=== PATIENT | female | born 1960 | race Caucasian/White ===

== ENCOUNTER → 2018-05-06 14:29 | Outpatient (CLI) | payer OTHER, SELFPAY ==
--- NOTE | 2018-05-06 14:31 | RAD_ITS ---
STUDY: X-RAY - LUMBAR SPINE REASON FOR EXAM: Female, 57 years old. Lumbar fusion. Follow-up. TECHNIQUE: 2 view(s) of the lumbar spine were obtained. COMPARISON: 08/27/2017 FINDINGS: There are stable postoperative changes from posterior fusion of L3-S1 with intact hardware and satisfactory alignment. There are stable degenerative changes with grade 1 anterolisthesis of L3 with respect to L4 and L4 with respect to L5. There is stable mild levoscoliosis. There is no acute fracture or dislocation. RAD/Lumbar Spine 2 or 3 Views IMPRESSION: Stable postoperative and degenerative changes in the lumbar spine. No fracture or dislocation in the lumbar spine. Electronically Signed: Jeremy King, at 19:48 EDT Tel , Service support ,
== END ==
PROVIDERS: Family Provider Nurse Practitioner Primary Care; PCP Nurse Practitioner Primary Care; Visit Provider Orthopaedic Surgery
DX: M54.5 Low back pain (principal)
CPT/HCPCS: 72100

== ENCOUNTER 2018-08-13 12:59 | Day surgery (SDC) | payer OTHER, SELFPAY ==
--- NOTE | 2018-08-08 16:17 | EKG12_ITS ---
Test Reason : PRE-OP Blood Pressure : / mmHG Vent. Rate : 067 BPM Atrial Rate : 067 BPM P-R Int : 140 ms QRS Dur : 080 ms QT Int : 378 ms P-R-T Axes : 061 042 027 degrees QTc Int : 399 ms Normal sinus rhythm Normal ECG Confirmed by OWEN WHITE ([id number]), editor & co founder GIO BOLANOS ([id number]) on 08/12/2018 9:09:31 AM Referred By: Johanny Valero Confirmed By:OWEN WHITE
[2018-08-08 16:31] LABS: Hematocrit 41.4 % (37-47); Hemoglobin 13.5 g/dl (12.0-15.0); Mean Corp Hgb Conc 32.6 g/gl (32-36); Mean Corpuscular Hgb 30.3 pg (27.0-32.0); Mean Platelet Vol. 9.6 fl (6.2-12.0); Platelet Count 297 K/mm3 (150-450); RBC Distribution Width SD 40.5 fl (35.1-43.9); Red Blood Count 4.45 M/mm3 (4.2-5.4); White Blood Count 7.3 K/mm3 (4.4-11.0)
[2018-08-08 16:38] LABS: Scan Indicated on CBC? Y/N NO
[2018-08-08 16:45] LABS: International Normalized Ratio 0.9; Prothrombin Time (Protime)PT. 12.1 SECONDS (11.7-14.9)
[2018-08-08 16:46] LABS: Partial Thromboplast Time 24.6 Seconds (24.1-36.2)
[2018-08-08 17:24] LABS: Thyroid Stim Hormone (TSH) 0.93 uIU/mL (0.358-3.74)
[2018-08-11 09:22] LABS: Creatinine, Serum 0.64 mg/dL (0.55-1.02); EST Glomerular Filtration Rate 101 mL/min (>60); Est Glom Filt Rate - Afr Amer 122 mL/min (>60)
[2018-08-13] VITALS (11 sets, daily range): BP systolic 99–142; BP diastolic 51–78; PULSE 49–92; RESP 16–18; TEMP 36.3–37.2; O2SAT 95–100; BMI 27.0
--- NOTE | 2018-08-13 | HYST_PTH ---
PATIENT: SANYA ALEJANDRO LOC: [facility] [place] U#:[id number] AGE/SX: 57/F ROOM: RE08/13/[address]: Dr. Johanny Valero MD : [id number] BED: DIS: 08/14/2018 SPEC #: [id number] RECD: 08/14/18 10:50 STATUS: COLTON PAVITHRA #: [id number] EUNICE: 08/13/18 00:[address]: Johanny Valero DEPT: SURGICAL PATHOLOGY RECD BY: Jhon Nation ENTERED: 08/14/18 10:50 SP TYPE: HYSTERECT OTHR DR: Ely Moya, MORTGAGE SERVICING SPECIALIST-C Tissues: Uterus, NOS Procedures: Surgery Specimen Level II Surgery Specimen Level V HEADER OPERATION: Vaginal hysterectomy, anterior repair PRE-OP DIAGNOSIS: Midline cystocele, uterovaginal prolapse TISSUE SUBMITTED: Uterus, vaginal mucosa MICROSCOPIC DIAGNOSIS Uterus, hysterectomy: Cervix - nabothian cysts, squamous metaplasia and mild chronic inflammation. Endometrium - inactive endometrium with cystic change. Myometrium - adenomyosis. Vaginal mucosa, anterior and posterior repair: Minimal chronic inflammation. No evidence of dysplasia. AM:deedee 08/15/18 MICROSCOPIC DESCRIPTION Slides are reviewed. GROSS DESCRIPTION Received in fixative is one container labeled with the patient's name and designated uterus. The specimen consists of a uterus with attached cervix without fallopian tubes or ovaries measuring 9.2 x 4 x 3 cm and weighing 53 gm. The ectocervix is unremarkable and the cervical os is oval in contour. The endocervical canal measures 4 cm in length and is grossly unremarkable. The triangular endometrial cavity measures 3 x 2.5 cm. The pink-atkins, velvety endometrium measures up to 0.2 cm in thickness. The myometrium measures 1.6 cm in average thickness and is free of mass lesions. Also present free in the container are two fragments of glistening mucosa with attached hemorrhagic submucosal tissue. These fragments in aggregate measure 4 x 3.5 x 1.5 cm. No mass lesions are identified. Plastic Press Operator sections are submitted in six cassettes as follows: 1 - anterior cervix, 2 - posterior cervix, 3 - anterior uterine wall, 4 & 5 - posterior uterine wall, 6 - vaginal mucosa. / AM:deedee 08/14/18 TC:5 CPT: 61865, 35656
--- NOTE | 2018-08-13 16:46 | PCM.IMDPSTOP ---
Immediate Post-Op Note Date of Procedure: 08/13/18 Primary Surgeon/Physician: Johanny Valero retail client solutions analyst: Joann grijalva retail client solutions analyst: Petty Zuleta retail client solutions analyst: Maria Guadalupe [place] Pre-Operative Diagnosis: Incomplete uterovaginal prolapse. Midline apical cystocele Post-Operative Diagnosis: Same Surgery/Procedure Performed:: TVH, Anterior repair Description of Surgical Findings:: Op note to follow Estimated Blood Loss: 100 Specimen's removed: uterus, cervix, Vaginal mucosa Drains: padilla, clear yellow urine 270 cc for case Type of Anesthesia:: General - Jostin Rushing, HOT FRAME TENDER - Admit VTE Documentation VTE Present on Admission: No VTE Mechan Device Prophylaxis: SCD's VTE Pharm Prophylaxis ordered?: Yes
--- NOTE | 2018-08-13 16:49 | OP.PN_ITS ---
Immediate Post-Op Note Date of Procedure: 08/13/18 Primary Surgeon/Physician: Johanny Valero water quality technician: Joann grijalva water quality technician: Petty Zuleta water quality technician: Maria Guadalupe [place] Pre-Operative Diagnosis: Incomplete uterovaginal prolapse. Midline apical cystocele Post-Operative Diagnosis: Same Surgery/Procedure Performed:: TVH, Anterior repair Description of Surgical Findings:: Op note to follow Estimated Blood Loss: 100 Specimen's removed: uterus, cervix, Vaginal mucosa Drains: padilla, clear yellow urine 270 cc for case Type of Anesthesia:: General - Jostin Rushing, TELEPHONE TRIAGE NURSE - Admit VTE Documentation VTE Present on Admission: No VTE Mechan Device Prophylaxis: SCD's VTE Pharm Prophylaxis ordered?: Yes
--- NOTE | 2018-08-13 17:07 | OP.PCM_ITS ---
Operative Report Date of Procedure: 08/13/18 PROCEDURE: Vaginal hysterectomy. Anterior repair Preoperative diagnosis: Symptomatic , incomplete uterovaginal prolapse Grade 2uterine prolapse Mild apical cystocele Postop diagnosis: Symptomatic , incomplete uterovaginal prolapse Grade 2uterine prolapse Mild apical cystocele Anesthesia: General Jostin Rushing CRNA Surgeon: Johanny Valero MD Non Licensed Nuclear Plant Operator: TRINITY Rodgers RN EBL 100 cc Complications: none Drains: Gonzales draining clear yellow urine , 270cc+ for the case Fluids: replacement LR Findings: On exam under anesthesia, the cervix has mild prolapse and is parous appearing. There is an apical cystocele noted. No appreciable rectocele. PATH: Uterus, and cervix. Strips of vaginal mucosa. Narrative account: After the risks, benefits and alternatives of the procedure were reviewed with the patient , informed consent was obtained. The patient was taken to the Operative room with an IV running . She was positioned in the dorsal supine position on the operating table and given general anesthesia. Once asleep she was positioned to the dorsal lithotomy position and prepped and draped in the usual sterile fashion. A Gonzales catheter was inserted to drain the bladder and left open to drain in the drape. The weighted speculum was placed into the vagina and a single tooth tenaculum was placed at the cervix. The cervical mucosal was then incised circumferentially using Bovie cautery and a knife. The posterior cul de sac was entered by sharp dissection with Rodriguez scissors and a long weighted Iván Auvard speculum was placed into the posterior cul se sac. Dissection then was initiated at the anterior cervix to enter the anterior cul se sac. A narrow Severn was inserted to retract the bladder out of harms way for the remainder of the case. The uterosacral ligaments were clamped bilaterally with curved Nayeli clamps and the pedicles divided and suture ligated and tagged for later identification. Next the cardinal ligament was clamped bilaterally and divided and suture ligated. Adequate hemostasis was noted. The uterine arteries were clamped bilaterally , divided and suture ligated. Dissection then continued along each side of the uterus. Each pedicle was secured with a Nayeli clamp, divided and suture ligated until ultimately the uterine fundus was reached. The superior pedicles on each side were secured with a curved Nayeli clamp and the uterus and attached fallopian tubes were surgically amputated and set aside. The superior pedicles were then suture ligated, then free tied and tagged for identification. The superior pedicles were dry. There was bleeding noted along the posterior vaginal cuff and along the anterior vaginal cuff . The peritoneum was then closed with a running purse string suture of 1 Vicryl, incorporating the superior pedicles and uterosacral ligament tags. the posterior portion of the vaginal cuff was closed in a vertical fashion with interrupted and figure of eight stitches of 1 Vicryl to the level of the uterosacral ligament tags. Allis clamps were used to grasp the anterior vaginal mucosa and the vaginal mucosa was dissected from from the underlying pubovesical cervical fascia from the vaginal cuff to a point approximately 1 cm away from the urethra. Su plication stitches of 1Vicryl were placed, reducing the small cystocele. The anterior vaginal mucosa was trimmed and the anterior vaginal incision was then repaired with interrupted stitches of 2-0 chromic. The remainder of the vaginal cuff was then closed with interrupted and fig of eight stitches of 1-0 Vicryl . Excellent hemostasis was noted. A vaginal packing was then inserted: 1 plain gauze Excellent hemostasis was noted. The Gonzales was attached to the Gonzales bag and clear yellow urine returned. A peripad was placed. The patient was returned to dorsal supine position and awakened from general anesthesia. She was then transferred to the recovery room bed in stable condition after tolerating the procedure well. Sponge, lap, needle and instrument counts correct times two. Medications given preop and intraoperatively included: Cefotetan 2 gm IV was given salesperson women's hats to the operating room. For a complete listing of medications given preop and intraoperatively, please see the anesthesia record.
--- NOTE | 2018-08-13 17:12 | SUR.PHASEI ---
medicated by anesthesia for hr 46. see anesthesia notes.
[2018-08-13] MEDS: Ketorolac 30 MG/ML Syringe IV ×2 (17:22→22:47)
[2018-08-13] MEDS: Lactated Ringers 1,000 ML 125 ML IV ×2 (17:23→19:20)
[2018-08-13] MEDS: HYDROmorphone 1 MG/ML Syringe IV (19:19)
[2018-08-13] MEDS: Docusate Sodium 100 MG Capsule PO (22:47)
--- NOTE | 2018-08-14 00:58 | PCM.DC.VHY ---
Discharge Diet: No Restrictions Discharge Activity: May not drive while taking narcotic pain medications., May Shower, May Take a Tub Bath Return to work on:: 09/29/18 May resume sexual activity in: 4-6 weeks Lifting Restrictions: 20# or less for 4-6 wks to allow healing. Call your doctor if you observe: Fever of 101 or Higher, Inability to have a bowel movement, Using more than one pad per hour, Uncontrolled pain Additional Instructions: You may resume bonbon cream warmer activity as tolerated. Nothing in vagina and avoid lifting more than 20# for 4-6 wk to allow healing. OK to go up and down stairs as comfortable. You may take Tylenol (500 mg tabs) 1-2 every 6 hrs as needed for milder pain. Add Naproxen for mild to moderate pain. In addition, take Oxycodone for more severe pain. Allergies/Adverse Reactions: Allergies barley Allergy (Verified 08/06/18 14:03) Other corn Allergy (Verified 08/06/18 14:03) Other egg Allergy (Verified 08/06/18 14:03) Other gluten Allergy (Verified 05/06/18 15:57) unknown nut - unspecified Allergy (Verified 05/06/18 15:57) unknown shellfish derived Allergy (Verified 08/06/18 14:03) Other turkey Allergy (Verified 08/06/18 14:03) Other wheat Allergy (Verified 08/06/18 14:03) Other Yeast Allergy (Verified 08/06/18 14:03) Other DAIRY Allergy (Uncoded 08/06/18 14:03) Other EGG PLANT Allergy (Uncoded 08/06/18 14:03) Other EGG WHITE Allergy (Uncoded 08/06/18 14:03) Other MALT Allergy (Uncoded 08/06/18 14:03) Other Medications to take at Discharge biotin 2,500 mcg capsule 5,000 mcg PO BID 05/06/18 calcium carbonate 600 mg calcium (1,500 mg) tablet 600 mg PO BID tab 05/06/18 cholecalciferol (vitamin D3) 50,000 unit capsule 50,000 unit PO QWEEK 05/06/18 conj estrogen-medroxyprogesterone 0.625 mg-2.5 mg tablet 1 tab PO DAILY 05/06/18 levothyroxine 150 mcg tablet 175 mcg PO QDAY 05/06/18 montelukast 10 mg tablet 10 mg PO PRN PRN 05/06/18 omega 7-qsx-qim-fish oil 1,000 mg (120 mg-180 mg) capsule 1 cap PO BID 05/06/18 triamcinolone acetonide 55 mcg nasal spray aerosol 1 spray INTRANASAL QDAY 05/06/18 Albuterol IH (ProAir) [Proair Hfa (SP)Vent Pts] 2 puff INHALATION Q6H PRN PRN 08/06/18 Fexofenadine HCl [Mickie Allergy] 180 mg PO DAILY 08/06/18 Lisinopril 20 mg PO DAILY 08/06/18 Pseudoephedrine HCl [Sudafed 12 Hour] 120 mg PO DAILY 08/06/18 Acetaminophen [Tylenol] 1,000 mg PO Q8H PRN PRN tablet 08/14/18 Albuterol Aerosols [Ventolin Aerosols] 2.5 mg INHALATION Q6H PRN PRN vial.neb. 08/14/18 Docusate Sodium [Colace] 100 mg PO BID PRN #30 capsule 08/14/18 Ibuprofen 600 mg PO Q8H PRN PRN #30 tablet 08/14/18 Oxycodone [Oxyir] 5 mg PO Q6H PRN PRN 7 Days #20 tab 08/14/18 Polyethylene Glycol 3350 [Miralax] 17 gm PO DAILY PRN #1 bottle 08/14/18 The following prescriptions were given: Oxycodone [Oxyir] 5 mg PO Q6H PRN PRN 7 Days #20 tab PRN Reason: Mod-Severe Pain (4-10/10) Ibuprofen 600 mg PO Q8H PRN PRN #30 tablet PRN Reason: Mild-Mod Pain (1-5/10) Polyethylene Glycol 3350 [Miralax] 17 gm PO DAILY PRN #1 bottle PRN Reason: Constipation Docusate Sodium [Colace] 100 mg PO BID PRN #30 capsule PRN Reason: Constipation Primary Care Physician: Ely Moya NP-C [Primary Care Provider] - Test Results: Test results from this visit will be discussed in further detail at your follow-up appointment, if applicable. Please Follow Up With: Johanny Valero MD - [phone] When: in two weeks for postoperative appointment Proposed Discharge Date: 08/14/18
--- NOTE | 2018-08-14 01:09 | DCINST_ITS ---
Discharge Diet: No Restrictions Discharge Activity: May not drive while taking narcotic pain medications., May Shower, May Take a Tub Bath Return to work on:: 09/29/18 May resume sexual activity in: 4-6 weeks Lifting Restrictions: 20# or less for 4-6 wks to allow healing. Call your doctor if you observe: Fever of 101 or Higher, Inability to have a bowel movement, Using more than one pad per hour, Uncontrolled pain Additional Instructions: You may resume mineral surveyor activity as tolerated. Nothing in vagina and avoid lifting more than 20# for 4-6 wk to allow healing. OK to go up and down stairs as comfortable. You may take Tylenol (500 mg tabs) 1-2 every 6 hrs as needed for milder pain. Add Naproxen for mild to moderate pain. In addition, take Oxycodone for more severe pain. Allergies/Adverse Reactions: Allergies barley Allergy (Verified 08/06/18 14:03) Other corn Allergy (Verified 08/06/18 14:03) Other egg Allergy (Verified 08/06/18 14:03) Other gluten Allergy (Verified 05/06/18 15:57) unknown nut - unspecified Allergy (Verified 05/06/18 15:57) unknown shellfish derived Allergy (Verified 08/06/18 14:03) Other turkey Allergy (Verified 08/06/18 14:03) Other wheat Allergy (Verified 08/06/18 14:03) Other Yeast Allergy (Verified 08/06/18 14:03) Other DAIRY Allergy (Uncoded 08/06/18 14:03) Other EGG PLANT Allergy (Uncoded 08/06/18 14:03) Other EGG WHITE Allergy (Uncoded 08/06/18 14:03) Other MALT Allergy (Uncoded 08/06/18 14:03) Other Medications to take at Discharge biotin 2,500 mcg capsule 5,000 mcg PO BID 05/06/18 calcium carbonate 600 mg calcium (1,500 mg) tablet 600 mg PO BID tab 05/06/18 cholecalciferol (vitamin D3) 50,000 unit capsule 50,000 unit PO QWEEK 05/06/18 conj estrogen-medroxyprogesterone 0.625 mg-2.5 mg tablet 1 tab PO DAILY 05/06/18 levothyroxine 150 mcg tablet 175 mcg PO QDAY 05/06/18 montelukast 10 mg tablet 10 mg PO PRN PRN 05/06/18 omega 9-kvf-sal-fish oil 1,000 mg (120 mg-180 mg) capsule 1 cap PO BID 05/06/18 triamcinolone acetonide 55 mcg nasal spray aerosol 1 spray INTRANASAL QDAY 05/06/18 Albuterol IH (ProAir) [Proair Hfa (SP)Vent Pts] 2 puff INHALATION Q6H PRN PRN 08/06/18 Fexofenadine HCl [Mickie Allergy] 180 mg PO DAILY 08/06/18 Lisinopril 20 mg PO DAILY 08/06/18 Pseudoephedrine HCl [Sudafed 12 Hour] 120 mg PO DAILY 08/06/18 Acetaminophen [Tylenol] 1,000 mg PO Q8H PRN PRN tablet 08/14/18 Albuterol Aerosols [Ventolin Aerosols] 2.5 mg INHALATION Q6H PRN PRN vial.neb. 08/14/18 Docusate Sodium [Colace] 100 mg PO BID PRN #30 capsule 08/14/18 Ibuprofen 600 mg PO Q8H PRN PRN #30 tablet 08/14/18 Oxycodone [Oxyir] 5 mg PO Q6H PRN PRN 7 Days #20 tab 08/14/18 Polyethylene Glycol 3350 [Miralax] 17 gm PO DAILY PRN #1 bottle 08/14/18 The following prescriptions were given: Oxycodone [Oxyir] 5 mg PO Q6H PRN PRN 7 Days #20 tab PRN Reason: Mod-Severe Pain (4-10/10) Ibuprofen 600 mg PO Q8H PRN PRN #30 tablet PRN Reason: Mild-Mod Pain (1-5/10) Polyethylene Glycol 3350 [Miralax] 17 gm PO DAILY PRN #1 bottle PRN Reason: Constipation Docusate Sodium [Colace] 100 mg PO BID PRN #30 capsule PRN Reason: Constipation Primary Care Physician: Ely Moya NP-C [Primary Care Provider] - Test Results: Test results from this visit will be discussed in further detail at your follow- up appointment, if applicable. Please Follow Up With: Johanny Valero MD - [phone] When: in two weeks for postoperative appointment Proposed Discharge Date: 08/14/18
[2018-08-14] MEDS: Lactated Ringers 1,000 ML 125 ML IV (03:33)
[2018-08-14] MEDS: oxyCODONE 5 MG Tablet PO (03:34)
[2018-08-14 03:38] VITALS: BP 121/59; PULSE 82; RESP 18; TEMP 36.7; O2SAT 95
[2018-08-14] MEDS: Ketorolac 30 MG/ML Syringe IV (05:04)
[2018-08-14] MEDS: Levothyroxine 175 MCG Tablet PO (05:10)
[2018-08-14] MEDS: Lisinopril 20 MG Tablet PO (05:58)
[2018-08-14] MEDS: 0.9% NaCl Peripheral Flush Adult/Peds IV (05:58)
[2018-08-14] MEDS: PSEUDOEPHEDRINE HCL 120 MG PO (06:03)
[2018-08-14 06:33] LABS: Hematocrit 32.5 % (37-47); Hemoglobin 10.9 g/dl (12.0-15.0); Mean Corp Hgb Conc 33.5 g/gl (32-36); Mean Corpuscular Hgb 31.3 pg (27.0-32.0); Mean Corpuscular Volume 93.4 fL (81-99); Mean Platelet Vol. 9.9 fl (6.2-12.0); Platelet Count 224 K/mm3 (150-450); RBC Distribution Width CV 11.4 % (11.6-14.6); RBC Distribution Width SD 38.2 fl (35.1-43.9); Red Blood Count 3.48 M/mm3 (4.2-5.4); White Blood Count 12.7 K/mm3 (4.4-11.0)
[2018-08-14 06:37] LABS: Scan Indicated on CBC? Y/N NO
[2018-08-14 06:44] LABS: Creatinine, Serum 0.66 mg/dL (0.55-1.02); EST Glomerular Filtration Rate 98 mL/min (>60); Est Glom Filt Rate - Afr Amer 119 mL/min (>60); Estimated Creatinine Clearance 73.48 ml/min
[2018-08-14 07:00] VITALS: O2SAT 94
--- NOTE | 2018-08-14 08:16 | PCM.PROGNOTE ---
Subjective: POD#1 TVH anterior repair Symptomatic incomplete uterovaginal prolapse Doing well. Asking about the surgery and what meds given for anesthesia. No propofol 2/2 egg allergy. Padilla in and driaining very clear appearing uerinr. Vaginal packing still in place. Tolerating diet, no N/V. States poor sleep last night after anesthesia. No other concerns voiced. - Physical Exam General: Alert, Oriented x3, Cooperative, No apparent distress HEENT: Atraumatic Neck: Supple Neurological: Cranial nerves II-XII grossly intact Psych/Mental Status: Normal Affect Comment: vaginal packing removed. minimal old blood noted. No active bleeding not Vital Signs Temp Pulse Resp BP Pulse Ox 98.1 F 82 18 121/59 H 94 08/14/18 03:38 08/14/18 03:38 08/14/18 03:38 08/14/18 03:38 08/14/18 07:00 Oxygen Delivery Method Room Air Weight: 67.1 kg Body Mass Index (BMI) 27.0 Intake and Output for Last 24 Hours 08/12/18 08/13/18 08/14/18 23:59 23:59 23:59 Intake Total 2700 / 2700 3477 / 3477 Output Total 300 / 300 1125 / 1125 Balance 2400 / 2400 2352 / 2352 Laboratory Tests Past 24 Hrs 08/14/18 08/14/18 06:10 06:10 WBC 12.7 H RBC 3.48 L Hgb 10.9 L Hct 32.5 L MCV 93.4 MCH 31.3 MCHC 33.5 RDW 11.4 L RDW Differential 38.2 Plt Count 224 MPV 9.9 Creatinine 0.66 Estim Creat Clear Calc 73.48 Est GFR (MDRD) Af Amer 119 Est GFR (MDRD) Non-Af 98 Medical Necessity - Tobacco Use Smoking Status: Never smoker Assessment/Plan POD#1 TVH anterior repair. Stable postop. Inc diet and activity as tolerated. Begin po meds. D/C padilla for voiding trial. May dischg home if criteria met later today.
--- NOTE | 2018-08-14 08:20 | PCM.DC.SUM ---
Discharge Date and Diagnosis Date of Admission: 08/13/18 Date of Discharge: 08/14/18 Hospital Course and Treatment Operations: hysterectomy - anterior repair Summary of Care Provided: The patient is a 57 year old F with incomplete, symptomatic uterovaginal prolapse. Presents for TVH, anterior repair. procedure performed on 08/13/18 Uncomplicated. preop Hgb 13.5 postop Hgb 10.9 g/dl. Excellent urine output. Tolerating po without N/V. AVSS Leukocytosis (reactive) noted postop. Voiding trial in progress, Dischg home planned later today if criteria met. - Physical Exam Vital Signs Temp Pulse Resp BP Pulse Ox 98.1 F 82 18 121/59 H 94 08/14/18 03:38 08/14/18 03:38 08/14/18 03:38 08/14/18 03:38 08/14/18 07:00 Oxygen Delivery Method Room Air Weight: 67.1 kg Body Mass Index (BMI) 27.0 Intake and Output for Last 24 Hours 08/12/18 08/13/18 08/14/18 23:59 23:59 23:59 Intake Total 2700 / 2700 3477 / 3477 Output Total 300 / 300 1125 / 1125 Balance 2400 / 2400 2352 / 2352 Laboratory Tests Past 24 Hrs 08/14/18 08/14/18 06:10 06:10 WBC 12.7 H RBC 3.48 L Hgb 10.9 L Hct 32.5 L MCV 93.4 MCH 31.3 MCHC 33.5 RDW 11.4 L RDW Differential 38.2 Plt Count 224 MPV 9.9 Creatinine 0.66 Estim Creat Clear Calc 73.48 Est GFR (MDRD) Af Amer 119 Est GFR (MDRD) Non-Af 98 Discharge Diet: No Restrictions Discharge Activity: May not drive while taking narcotic pain medications., May Shower, May Take a Tub Bath Return to work on:: 09/29/18 May resume sexual activity in: 4-6 weeks Call your doctor if you observe: Fever of 101 or Higher, Inability to have a bowel movement, Using more than one pad per hour, Uncontrolled pain Home Medications: Medications to take at Discharge biotin 2,500 mcg capsule 5,000 mcg PO BID 05/06/18 calcium carbonate 600 mg calcium (1,500 mg) tablet 600 mg PO BID tab 05/06/18 cholecalciferol (vitamin D3) 50,000 unit capsule 50,000 unit PO QWEEK 05/06/18 conj estrogen-medroxyprogesterone 0.625 mg-2.5 mg tablet 1 tab PO DAILY 05/06/18 levothyroxine 150 mcg tablet 175 mcg PO QDAY 05/06/18 montelukast 10 mg tablet 10 mg PO PRN PRN 05/06/18 omega 0-uno-vqr-fish oil 1,000 mg (120 mg-180 mg) capsule 1 cap PO BID 05/06/18 triamcinolone acetonide 55 mcg nasal spray aerosol 1 spray INTRANASAL QDAY 05/06/18 Albuterol IH (ProAir) [Proair Hfa (SP)Vent Pts] 2 puff INHALATION Q6H PRN PRN 08/06/18 Fexofenadine HCl [Mickie Allergy] 180 mg PO DAILY 08/06/18 Lisinopril 20 mg PO DAILY 08/06/18 Pseudoephedrine HCl [Sudafed 12 Hour] 120 mg PO DAILY 08/06/18 Acetaminophen [Tylenol] 1,000 mg PO Q8H PRN PRN tablet 08/14/18 Albuterol Aerosols [Ventolin Aerosols] 2.5 mg INHALATION Q6H PRN PRN vial.neb. 08/14/18 Docusate Sodium [Colace] 100 mg PO BID PRN #30 capsule 08/14/18 Ibuprofen 600 mg PO Q8H PRN PRN #30 tablet 08/14/18 Oxycodone [Oxyir] 5 mg PO Q6H PRN PRN 7 Days #20 tab 08/14/18 Polyethylene Glycol 3350 [Miralax] 17 gm PO DAILY PRN #1 bottle 08/14/18 Following Prescrptions Were Given to Patient: Oxycodone [Oxyir] 5 mg PO Q6H PRN PRN 7 Days #20 tab PRN Reason: Mod-Severe Pain (4-10/10) Ibuprofen 600 mg PO Q8H PRN PRN #30 tablet PRN Reason: Mild-Mod Pain (1-5/10) Polyethylene Glycol 3350 [Miralax] 17 gm PO DAILY PRN #1 bottle PRN Reason: Constipation Docusate Sodium [Colace] 100 mg PO BID PRN #30 capsule PRN Reason: Constipation Primary Care Physician: Ely Moya, DAM TENDER-C [Primary Care Provider] - Please Follow Up With: Johanny Valero MD - [phone] When: in two weeks for postoperative appointment Additional Instructions: 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 Nothing in vagina and avoid lifting more than 20# for 4-6 wk to allow healing. OK to go up and down stairs as comfortable. You may take Tylenol (500 mg tabs) 1-2 every 6 hrs as needed for milder pain. Add Naproxen for mild to moderate pain. In addition, take Oxycodone for more severe pain. Medical Necessity - Tobacco Use Smoking Status: Never smoker Meaningful Use Info Meaningful Use Diagnoses (Choose all that apply): None applicable
--- NOTE | 2018-08-14 08:23 | DS.PCM_ITS ---
Discharge Date and Diagnosis Date of Admission: 08/13/18 Date of Discharge: 08/14/18 Hospital Course and Treatment Operations: hysterectomy - anterior repair Summary of Care Provided: The patient is a 57 year old F with incomplete, symptomatic uterovaginal prolapse. Presents for TVH, anterior repair. procedure performed on 08/13/18 Uncomplicated. preop Hgb 13.5 postop Hgb 10.9 g/dl. Excellent urine output. Tolerating po without N/V. AVSS Leukocytosis (reactive) noted postop. Voiding trial in progress, Dischg home planned later today if criteria met. - Physical Exam Vital Signs Temp Pulse Resp BP Pulse Ox 98.1 F 82 18 121/59 H 94 08/14/18 03:38 08/14/18 03:38 08/14/18 03:38 08/14/18 03:38 08/14/18 07:00 Oxygen Delivery Method Room Air Weight: 67.1 kg Body Mass Index (BMI) 27.0 Intake and Output for Last 24 Hours 08/12/18 08/13/18 08/14/18 23:59 23:59 23:59 Intake Total 2700 / 2700 3477 / 3477 Output Total 300 / 300 1125 / 1125 Balance 2400 / 2400 2352 / 2352 Laboratory Tests Past 24 Hrs 08/14/18 08/14/18 06:10 06:10 WBC 12.7 H RBC 3.48 L Hgb 10.9 L Hct 32.5 L MCV 93.4 MCH 31.3 MCHC 33.5 RDW 11.4 L RDW Differential 38.2 Plt Count 224 MPV 9.9 Creatinine 0.66 Estim Creat Clear Calc 73.48 Est GFR (MDRD) Af Amer 119 Est GFR (MDRD) Non-Af 98 Discharge Diet: No Restrictions Discharge Activity: May not drive while taking narcotic pain medications., May Shower, May Take a Tub Bath Return to work on:: 09/29/18 May resume sexual activity in: 4-6 weeks Call your doctor if you observe: Fever of 101 or Higher, Inability to have a bowel movement, Using more than one pad per hour, Uncontrolled pain Home Medications: Medications to take at Discharge biotin 2,500 mcg capsule 5,000 mcg PO BID 05/06/18 calcium carbonate 600 mg calcium (1,500 mg) tablet 600 mg PO BID tab 05/06/18 cholecalciferol (vitamin D3) 50,000 unit capsule 50,000 unit PO QWEEK 05/06/18 conj estrogen-medroxyprogesterone 0.625 mg-2.5 mg tablet 1 tab PO DAILY 05/06/18 levothyroxine 150 mcg tablet 175 mcg PO QDAY 05/06/18 montelukast 10 mg tablet 10 mg PO PRN PRN 05/06/18 omega 7-iod-jdm-fish oil 1,000 mg (120 mg-180 mg) capsule 1 cap PO BID 05/06/18 triamcinolone acetonide 55 mcg nasal spray aerosol 1 spray INTRANASAL QDAY 05/06/18 Albuterol IH (ProAir) [Proair Hfa (SP)Vent Pts] 2 puff INHALATION Q6H PRN PRN 08/06/18 Fexofenadine HCl [Mickie Allergy] 180 mg PO DAILY 08/06/18 Lisinopril 20 mg PO DAILY 08/06/18 Pseudoephedrine HCl [Sudafed 12 Hour] 120 mg PO DAILY 08/06/18 Acetaminophen [Tylenol] 1,000 mg PO Q8H PRN PRN tablet 08/14/18 Albuterol Aerosols [Ventolin Aerosols] 2.5 mg INHALATION Q6H PRN PRN vial.neb. 08/14/18 Docusate Sodium [Colace] 100 mg PO BID PRN #30 capsule 08/14/18 Ibuprofen 600 mg PO Q8H PRN PRN #30 tablet 08/14/18 Oxycodone [Oxyir] 5 mg PO Q6H PRN PRN 7 Days #20 tab 08/14/18 Polyethylene Glycol 3350 [Miralax] 17 gm PO DAILY PRN #1 bottle 08/14/18 Following Prescrptions Were Given to Patient: Oxycodone [Oxyir] 5 mg PO Q6H PRN PRN 7 Days #20 tab PRN Reason: Mod-Severe Pain (4-10/10) Ibuprofen 600 mg PO Q8H PRN PRN #30 tablet PRN Reason: Mild-Mod Pain (1-5/10) Polyethylene Glycol 3350 [Miralax] 17 gm PO DAILY PRN #1 bottle PRN Reason: Constipation Docusate Sodium [Colace] 100 mg PO BID PRN #30 capsule PRN Reason: Constipation Primary Care Physician: Ely Moya, [employer]PER[employer] [Primary Care Provider] - Please Follow Up With: Johanny Valero MD - [phone] When: in two weeks for postoperative appointment Additional Instructions: 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 Nothing in vagina and avoid lifting more than 20# for 4-6 wk to allow healing. OK to go up and down stairs as comfortable. You may take Tylenol (500 mg tabs) 1-2 every 6 hrs as needed for milder pain. Add Naproxen for mild to moderate pain. In addition, take Oxycodone for more severe pain. Medical Necessity - Tobacco Use Smoking Status: Never smoker Meaningful Use Info Meaningful Use Diagnoses (Choose all that apply): None applicable
[2018-08-14 08:25] VITALS: BP 109/49; PULSE 86; RESP 16; TEMP 36.9; O2SAT 98
[2018-08-14] MEDS: Docusate Sodium 100 MG Capsule PO (08:25)
== END 2018-08-14 08:18 | disposition home or self-care (01) ==
LOC: SDC 12:59 → AC 13:00 → MS3 08-14 11:07
PROVIDERS: Family Provider Nurse Practitioner Primary Care; PCP Nurse Practitioner Primary Care; Referring Provider Obstetrics & Gynecology; Visit Provider Obstetrics & Gynecology
PROC: (CPT 58260; principal; 2018-08-13 14:30)
DX: N81.2 Incomplete uterovaginal prolapse (principal); N80.0 Endometriosis of uterus; N88.8 Other specified noninflammatory disorders of cervix uteri; N72 Inflammatory disease of cervix uteri; I10 Essential (primary) hypertension; E03.9 Hypothyroidism, unspecified; E78.5 Hyperlipidemia, unspecified; J45.909 Unspecified asthma, uncomplicated; G54.0 Brachial plexus disorders; Z79.899 Other long term (current) drug therapy
CPT/HCPCS: 00942; 57240; 58260; 36415; 82565; 84443; 85027; 85610; 85730; 86850; 86900; 88302; 88307; 93005; 97802; J7120; A4216; J2405

== ENCOUNTER → 2018-08-15 15:17 | Outpatient (CLI) | payer OTHER, SELFPAY | PROVIDERS: Visit Provider Obstetrics & Gynecology | DX: N39.0 Urinary tract infection, site not specified (principal) | CPT/HCPCS: 87086 ==

== ENCOUNTER → 2018-08-20 10:53 | Outpatient (CLI) | payer OTHER, SELFPAY | PROVIDERS: Family Provider Nurse Practitioner Primary Care; PCP Nurse Practitioner Primary Care; Referring Provider Obstetrics & Gynecology; Visit Provider Obstetrics & Gynecology | DX: I80.8 Phlebitis and thrombophlebitis of other sites (principal); M25.562 Pain in left knee | CPT/HCPCS: 93971 ==

== ENCOUNTER → 2018-09-02 12:54 | Outpatient (CLI) | payer OTHER, SELFPAY ==
[2018-08-13 19:01] VITALS: BMI 27.0
--- NOTE | 2018-09-02 12:57 | RAD_ITS ---
STUDY: X-RAY - LEFT KNEE REASON FOR EXAM: Pain. TECHNIQUE: 4 view(s) of the knee. COMPARISON: None. FINDINGS: Normal visualized distal femur. Normal visualized proximal tibia and fibula. Normal proximal tibiofibular articulation. Normal medial femorotibial compartment. Normal lateral femorotibial compartment. There are minimal marginal osteophytes of the patella and mild joint space narrowing of the patellofemoral articulation. There is a small joint effusion. There are intra-articular bodies in the suprapatellar recess. RAD/Knee 4 or More Views IMPRESSION: Mild patellofemoral arthrosis. Intra-articular bodies. Small joint effusion. Electronically Signed: Marc Vela MD at 14:25 EST Tel , Service support ,
== END ==
PROVIDERS: Family Provider Nurse Practitioner Primary Care; PCP Nurse Practitioner Primary Care; Referring Provider Orthopaedic Surgery; Visit Provider Orthopaedic Surgery
DX: M25.562 Pain in left knee (principal)
CPT/HCPCS: 73564

== ENCOUNTER → 2019-03-10 14:11 | Outpatient (CLI) | payer OTHER, SELFPAY ==
--- NOTE | 2019-03-10 14:13 | RAD_ITS ---
STUDY: X-RAY - LUMBAR SPINE REASON FOR EXAM: Female, 58 years old. Back pain. Previous surgery. TECHNIQUE: 4 view(s) of the lumbar spine were obtained with flexion and extension. COMPARISON: 05/06/2018 FINDINGS: Stable postoperative changes of laminectomy at L3, L4, and L5 with vertical fusion from intrapedicular screws and posterior rods at L3, L4, and L5. Disc spaces are stable at L4-L5. 6 mm retrolisthesis of L4 on L3, and 1.2 cm retrolisthesis of L5 on L4. These malalignments are stable. Stable multilevel moderate degenerative disc disease. Very limited range of motion. Little if any actual flexion or extension. No subluxations. RAD/L/S Spine Min 4 Views IMPRESSION: Extensive postsurgical changes, stable with malalignment as described but no subluxations or definite hardware complication. Electronically Signed: Erasto Joseph MD at 14:57 EDT , Service support ,
== END ==
PROVIDERS: Family Provider Nurse Practitioner Primary Care; PCP Nurse Practitioner Primary Care; Referring Provider Orthopaedic Surgery; Visit Provider Orthopaedic Surgery
DX: M54.9 Dorsalgia, unspecified (principal)
CPT/HCPCS: 72110

== ENCOUNTER 2019-03-17 10:00 | Outpatient (RCR) | payer OTHER, SELFPAY ==
--- NOTE | 2019-02-18 18:12 | HP.PTEVAL ---
Patient's Visit Information SANYA ALEJANDRO is a 58 year old F referred to Physical Therapy by Floyd Pugh with a diagnosis of LUMBAR AND CERVICAL STRAINS. Date of Evaluation: 02/18/19 Physical Therapist: Greta Salvador PT, Cert MDT - Visit Plan Frequency: 2x /Week Duration: 4 Weeks Plan: PATIENT MAY BE A GOOD AQUATIC THERAPY CANDIDATE BUT PATIENT RELUCTANT DUE TO THE NEED FOR ORHTOTIC FOR LEFT TOE. POSTURE CORRECTION/STRENGTHENING, INSTRUCTION IN APPROPRIATE BODY MECHANICS AND ACTIVITY MODIFICATIONS. DLS STARTING WITH A NEUTRAL SPINE PROGRESSING ROM TOLERATED. AZAEL UE AND LE ROM, STRETCHING AND STRENGTHENING. HEP INSTRUCTION. 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 [employer]. CURRENTLY NOT OFF WORK. Disability: NO. Present symptoms: RIGHT CHEST, RIGHT NECK, RIGHT SHOULDER, ARM, FOREARM AND DIGITS ONE AND TWO PAIN, NUMBNESS AND TINLGING. ALSO AZAEL LOW BACK PAIN AND OUT INTO HIPS AND BUTTOCK REGIONS. INTERMITTENT DIZZINESS SINCE THE FALL ESPECIALLY BENDING HEAD TO RIGHT. Present since: NOV 17 2018. Pain Scale: WORST 9/10, LEAST 2/10. Currently: 3/10. Commenced as a result of: WALKING BACKWARDS AT WORK AND FELL OVER A CHILD. Symptoms at onset: NECK AND BACK PAIN. RIGHT SHOULDER BLADE. GOT WORSE 30 MIN LATER. Worse: DRIVING, DOING HAIR, MOPPING THE FLOOR, VACUUMING, HOLDING GRANDBABIES (ABOUT 10 LBS), ANYTHING USING RIGHT UE, PROLONGED SITTING, SITTING ON MOWER, USING A SHOVEL, PROLONGED WALKING, PROLONGED STANDING. TURNING HEAD. LIFTING, CHANGING SHEETS ON THE BED. Better: TYLONOL, ALEVE, ICE, MASSAGE THERAPY ONCE A WEEK DEFINATELY HELPS, PUSHING ON RIGHT CHEST. ALSO PRESSING ON RIGHT ARM AND FOREARM. Disturbed sleep: YES. Previous history/Previous treatment: FEBRUARY 2017 LUMBAR LAMINECTOMY AND FUSION, NO NECK SURGERY, THORACIC OUTLET SYNDROME. PHYSICAL THERAPY. RIGHT CARPAL TUNNEL SX 2012. CHRONIC NECK PAIN - MAINLY MANAGED WITH PAIN MEDS AND PHYSICAL THERAPY. LONG HISTORY OF A LOT OF CHIROPRACTIC TREATMENTS FOR NECK AND BACK. LONG HISTORY WITH MASSAGE THERAPY TOO. LAST CHIROPRACTIC VISIT WAS ABOUT A MONTH AGO AND PATIENT REPORTS THE CHIROPRACTOR HAS TO PUT HER RIB BACK IN PLACE EVERY TIME. Coughing/sneezing/straining: POSITIVE. Gait: I FEEL LIKE I AM NOT STRONG ENOUGH TO WALK STRAIGHT LIKE I WAS BEFORE THE FALL. I AM WALKING CROOKED AGAIN AND MY RIGHT HIP IS UP AGAIN. IT IS JUST PAINFUL. Difficulty initiating urinatin: NO. Accidents: NO OTHERS. Unexplained weight loss: NO. Imaging: MRI OF LOW BACK YESTERDAY - PATIENT STATES SHE HAS NOT RECEIVED THE RESULTS YET. X-RAY OF LOW BACK DAY AFTER THE FALL AT [facility] - PATIENT REPORTS SHE IS CONFUSED ABOUT THE RESULTS SHE WAS GIVEN BECAUSE HER X-RAYS WERE COMPARED TO ONES TAKEN BEFORE LUMBAR SURGERY AND SHE WAS TOLD THIS X-RAY SHOWED NO CHANGES. NO FX'S OR OTHER ABNORMALITIES THAT PATIENT IS AWARE OF AND TOLD HER THE PROBLEM IS IN THE SOFT TISSUE. NO NECK X-RAYS. PMH: HTN, HYPOTHYROIDISM, SKIN CANCER, HYSTERECTOMY JUL 2018, ARTHITIS LEFT FOOT - SPECIAL ORTHOTICS MADE A FEW MONTHS AGO. PLOF (Prior Level of Function): UNLIMITED. TREATMENT THIS EPISODE: CHIRO X 6, MASSAGES X ABOUT 15 VISITS, PREDNISONE, ALEVE, TYLONOL, ICE AND HEAT. HAS CONTINUED EX'S GIVEN DURING PRIOR EPISODES OF CARE WITH PHYSICAL THERAPY BUT NOW 3 MONTHS LATER STILL SIGNIFICANTLY LIMITED COMPARED TO BEFORE THE FALL. NORMAL FOLLOW UP FOR LUMBAR SURGERY IS PENDING WITH DR. MORA 03/10/19. - Objective Sitting/Standing Posture: FAIR. REDUCED LORDOSIS BUT NO RELEVENT LATERAL SHIFT. MILD FORWARD HEAD AND ROUNDED SHOULDERS. NO TORICOLLIS. Active Correction of posture: BETTER. Other Observations: THIS PATIENT AMBULATES INDEP INTO PT WITHOUT ANY ASSISTIVE DEVICES OR LOB. INDEP TRANSFER SIT TO STAND WITHOUT UE ASSIST. Motor deficit: AZAEL UE ROM AND STRENGTH WITHIN FUNCTIONAL LIMITS BUT C/O INCREASED PAIN WITH TESTING AND WITH REACHING BEHIND HER BACK WITH RIGHT UE. AZAEL LE ROM WFL BUT TOES NT. TESTING OF AZAEL HIPS INCREASE C/O LBP. AZAEL HIP WEAKNESS GRADED 4-/5. Sensory deficit: NO (EVEN RIGHT FINGERS). Reflexes: 1-2/2 AZAEL UE'S AND LE'S. Dural Signs: POSITIVE RIGHT UE. Lumbar mvmt loss: flex - MIN. ext - MOD. R SG - PAWEL. L SG - MOD. PATIENT C/O INCREASED PAIN WITH LUMBAR TESTING ALL PLANES BUT ESPECIALLY AZAEL SG TESTING. CERVICAL MVMT LOSS: FLEX - MIN, EXT - MIN, RIGHT SB - MOD, LEFT SB - MOD, RIGHT ROT - MOD TO PAWEL, LEFT ROT - MOD. PRO - NIL, RET - MOD. PATIENT C/O INCREASED AZAEL NECK PAIN RIGHT > LEFT WITH CERVICAL ROM TESTING ALL PLANES. Core strength: POOR. Palpation: PATIENT IS TENDER WITH PALPATION THROUGHOUT MOST OF HER SPINE BUT ESPCIALLY IN THE MID THORACIC REGION. - Goals Goal 1:: DECREASE C/O NECK AND RIGHT UE SX'S. Goal Time Frame: 4-6 Weeks Goal 2:: DECREASE C/O LBP Goal Time Frame: 4-6 Weeks Goal 3:: IMPROVE LIFTING, WALKING, SITTING, SOCIAL LIFE, TRAVEL, EMPLOYMENT, HOMEMAKING, READING, SLEEP, DRVING AND RECREATIONAL FUNCTION Goal Time Frame: 4-6 Weeks Goal 4:: INSTRUCT IN PROPHYLAXIS Goal Time Frame: 4-6 Weeks - Rehabilitation Potential Rehabilitation Potential: Fair - Anticipated Interventions Patient/Client Instruction: Educate patient on: Condition, Plan of Care, Risk Factors, Benefits of Fitness Program For the Purpose of:: To improve self management Therapeutic Exercise to Include: Strength training, Body mechanics, Postural training, Flexibilty training, Active ROM, Dynamic Lumbar Stabilization, Scapular Strength/Stabilization For the Purpose of:: To decrease pain, To increase ROM, To improve muscle performance and motor function, To increase tolerance to activity/condition/position, To improve ability of physical actions for home/community/work/leisure, To improve gait and locomotor functions Cryotherapy (ice pack, ice massage): Yes Thermo therapy (hot pack): Yes For the Purpose of:: To decrease pain, To decrease swelling/inflammation Thank you for the opportunity to evaluate your patient. For Medicare and Medicare HMO plans, please review the plan of care and approve it. It will need to be FAXED BACK to us at [phone] for Medicare purposes. For Medicare only, by signing this I certify the plan of care. Please let me know if there are questions or concerns regarding this plan of care. Physician Signature: Date:
--- NOTE | 2019-03-13 15:44 | HP.PTREVAL_ITS ---
Floyd Pugh, It has been my pleasure to treat SANYA ALEJANDRO over the last 7 visits for LUMBAR AND CERVICAL STRAINS. Please see the progress note below for an update on the physical therapy plan of care! Subjective: PATIENT REPORTS SHE GOT A GOOD REPORT FROM HER BACK SURGEON DR. MORA - X-RAYS LOOK GOOD. JUST SOFT TISSUE INJURY AND COULD TAKE 6 MONTHS TO HEAL. I DON'T HAVE ANY LOW BACK PAIN RIGHT NOW. TAKING IBUPROFEN AND TYLONOL FOR NECK AND SHOULDER. MARCH 27 FOLLOW UP SCHEDULED WITH FOR FALL. PATIENT REPORTS MRI WAS DENIED FOR NECK. REPORTS SHE IS OVER-ALL ABOUT 75% BETTER SINCE THE FALL. SHE REPORTS HER BIGGEST CONCERN IS HER RIGHT NECK AND SHOULDER. SHE REPORTS GOOD DAYS AND BAD DAYS WITH HER NECK AND SHOULDER. THERE ARE SOME DAYS SHE HAS ALMOST NO PAIN BUT OTHER DAYS IT IS BAD. UP TO 8/10 RIGHT NECK AND SHOULDER PAIN STILL OCCURING. AT TIMES IT DOESN'T HURT BUT IS ON ADVIL AND TYLONOL AROUND THE CLOCK. REPORTS HER THORACIC OUTLET SYNDROME EX'S MAKE HER PAIN WORSE AND THE CHIROPRACTOR TOLD HER TO STOP DOING THOSE EX'S ABOUT THE BEGINNING OF JANUARY. PATIENT REPORTS THE AQUATIC THERAPY IS DEFINATELY HELPING AND THINKS SHE NEEDS MORE. Objective/Function: PATIENT IS MAKING GOOD PROGRESS TOWARD PT WITH ROM AND STRENGTH IN GENERAL SPECIFIED BELOW BUT RIGHT NECK AND UE SX'S ARE STILL [facility] RE AT TIMES. UPON EXAM: Motor deficit: AZAEL UE ROM AND STRENGTH WITHIN FUNCTIONAL LIMITS BUT C/O INCREASED PAIN WITH TESTING AND WITH REACHING BEHIND HER BACK WITH RIGHT UE. 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 PATIENT IS RIGHT HAND DOMINANT. AZAEL LE ROM AND STRENGTH WFL BUT TOES NT. PATIENT DENIES PAIN WITH LE TESTING TODAY. Sensory deficit: NO (EVEN RIGHT FINGERS). Dural Signs: POSITIVE RIGHT UE. Lumbar mvmt loss: flex - NIL. ext - MOD. R SG - PAWEL. L SG - MOD. PATIENT C/O INCREASED PAIN WITH LUMBAR TESTING INTO RIGHT SG. CERVICAL MVMT LOSS: FLEX - MIN, EXT - NIL, RIGHT SB - MIN, LEFT SB - MOD, RIGHT ROT - MOD, LEFT ROT - MOD. PRO - NIL, RET - MOD. PATIENT C/O INCREASED RIGHT NECK PAIN WITH CERVICAL ROM TESTING INTO LEFT ROTATION AND LEFT SB. Core strength: POOR Plan Plan: RECOMMEND CONTINUED AQUATIC THERAPY BASED ON IMPROVEMENT MADE AND ROOM FOR MORE IMPROVEMENT. WE HAVE ONE MORE AUTHORIZED VISIT THAT WE WILL DO UNTIL PHYSICIAN FOLLOW UP. RECOMMEND CONTINUED AQUATIC THERAPY 2-3 TIMES A WEEK X 4 WEEKS. PATIENT IS AGREEABLE. Goals Goal 1:: DECREASE C/O NECK AND RIGHT UE SX'S. Goal Time Frame: 4-6 Weeks Goal Progress: Not Progressing Goal 2:: DECREASE C/O LBP Goal Time Frame: 4-6 Weeks Goal Progress: Progressing Goal 3:: IMPROVE LIFTING, WALKING, SITTING, SOCIAL LIFE, TRAVEL, EMPLOYMENT, HOMEMAKING, READING, SLEEP, DRVING AND RECREATIONAL FUNCTION Goal Time Frame: 4-6 Weeks Goal Progress: Progressing Goal 4:: INSTRUCT IN PROPHYLAXIS Goal Time Frame: 4-6 Weeks Goal Progress: Progressing Anticipated Interventions Patient/Client Instruction: Educate patient on: Condition, Plan of Care, Risk Factors, Benefits of Fitness Program For the Purpose of:: To improve self management Therapeutic Exercise to Include: Strength training, Body mechanics, Postural training, Flexibilty training, Active ROM, Dynamic Lumbar Stabilization, Scapular Strength/Stabilization For the Purpose of:: To decrease pain, To increase ROM, To improve muscle performance and motor function, To increase tolerance to activity/condition/position, To improve ability of physical actions for home/community/work/leisure, To improve gait and locomotor functions Cryotherapy (ice pack, ice massage): Yes Thermo therapy (hot pack): Yes For the Purpose of:: To decrease pain, To decrease swelling/inflammation Please do not hesitate to contact me at [phone] by phone or if you have questions or concerns regarding this new plan of care! Sincerely, Greta Salvador, PT, Cert MDT
--- NOTE | 2019-06-16 14:48 | HP.PT.NRP ---
HP - Discharge Summary (1) - Patient Information SANYA ALEJANDRO was seen in my office for initial evaluation on 02/18/19. The following Plan of Care was established for this patient: Initial Frequency: 2x /Week Initial Duration: 4 Weeks - Anticipated Interventions Patient/Client Instruction: Educate patient on: Condition, Plan of Care, Risk Factors, Benefits of Fitness Program For the Purpose of:: To improve self management Therapeutic Exercise to Include: Strength training, Body mechanics, Postural training, Flexibilty training, Active ROM, Dynamic Lumbar Stabilization, Scapular Strength/Stabilization For the Purpose of:: To decrease pain, To increase ROM, To improve muscle performance and motor function, To increase tolerance to activity/condition/position, To improve ability of physical actions for home/community/work/leisure, To improve gait and locomotor functions Cryotherapy (ice pack, ice massage): Yes Thermo therapy (hot pack): Yes For the Purpose of:: To decrease pain, To decrease swelling/inflammation This patient was last seen in our office 03/17/19. Pertinent comments regarding their Physical therapy will appear below: This patient has not returned to Physical Therapy and is appropriate to return to MD for further follow-up as needed. At this point I will be discontinuing this patient from physical therapy. I would be happy to see this patient again in the future if found appropriate by the physician. Thank you! Greta Salvador PT, Cert MDT
== END 2019-03-17 19:00 | disposition home or self-care (01) ==
LOC: PT 10:00
PROVIDERS: Family Provider Nurse Practitioner Primary Care; PCP Nurse Practitioner Primary Care
DX: S16.1XXD Strain of muscle, fascia and tendon at neck level, subsequent encounter (principal); S39.012D Strain of muscle, fascia and tendon of lower back, subsequent encounter
CPT/HCPCS: 97110; 97113; 97162; 97530

== ENCOUNTER → 2020-05-24 10:11 | Outpatient (CLI) | payer OTHER, SELFPAY ==
[2020-05-24 10:05] VITALS: BMI 27.0
--- NOTE | 2020-05-24 10:12 | RAD_ITS ---
STUDY: X-RAY - LUMBAR SPINE REASON FOR EXAM: Female, 59 years old. 2 YEARS POST OP, LBP TECHNIQUE: 4 view(s) of the lumbar spine were obtained including flexion and extension views.. COMPARISON: Comparison is made with prior study dated 03/10/2019. FINDINGS: Normal lumbar lordosis. There is a levoscoliosis of the lumbar spine. The patient is status post laminectomy and fusion at the L3-L4, L4-L5 and L5-S1 levels with screw and idalia fixation device. A disc spacer is seen at the L4-L5 level. Stable 6 mm retrolisthesis of L4 on L3 stable anterior listhesis of L4 on L5. Normal vertebral bodies and endplates. There is multi-level degenerative disc disease with multi-level disc space narrowing. The soft tissue structures are unremarkable. RAD/L/S Spine Min 4 Views IMPRESSION: Stable examination. Electronically Signed: Oziel Bridges, at 11:10 EDT , Service support ,
== END ==
PROVIDERS: PCP Nurse Practitioner Primary Care; Referring Provider Orthopaedic Surgery; Visit Provider Orthopaedic Surgery
DX: M54.5 Low back pain (principal)
CPT/HCPCS: 72110

== ENCOUNTER → 2020-07-27 14:05 | Outpatient (CLI) | payer OTHER, SELFPAY ==
[2020-07-27 15:26] LABS: Erythrocyte Sedimentation Rate 4 mm/hr (0-30)
[2020-07-27 15:29] LABS: Absolute Lymphocyte Count 2.78 X10^3/uL (0.83-4.51); Absolute Neutrophil Count 3.3 X10^3/uL (2.0-7.7); Basophil# 0.05 X10^3/uL; Basophil% 0.7 % (0-1); Eosinophil# 0.13 X10^3/uL; Eosinophils% 1.9 % (0-5); Hematocrit 42.6 % (37-47); Hemoglobin 13.7 g/dL (12.0-15.0); Lymphocyte # 2.78 X10^3/ul (4.0); Lymphocyte % 40.9 % (19-41); Mean Corp Hgb Conc 32.2 g/dL (32-36); Mean Corpuscular Hgb 31.1 pg (27.0-32.0); Mean Corpuscular Volume 96.8 fL (81-99); Mean Platelet Vol. 10.2 fl (6.2-12.0); Monocyte# 0.55 X10^3/uL; Monocyte% 8.1 % (0-10); NRBC Flagged by Analyzer 0 % (0-5); Neutrophil # 3.26 X10^3/uL (2.7-7.7); Neutrophil % 48.1 % (47-70); Platelet Count 286 K/mm3 (150-450); RBC Distribution Width CV 11.5 % (11.6-14.6); RBC Distribution Width SD 40.6 fl (35.1-43.9); White Blood Count 6.8 K/mm3 (4.4-11.0)
[2020-07-27 15:54] LABS: ALB/GLOB Ratio 1.1 RATIO (0.9-2.4); AST(SGOT) 18 U/L (15-37); Alanine Aminotransfer ALT/SGPT 37 U/L (13-56); Albumin, Serum 3.9 g/dL (3.2-5.0); Alkaline Phosphatase 78 U/L (45-117); Anion Gap 5 (5-15); BUN 16 mg/dL (7-18); BUN/Creat Ratio 25.2 RATIO (10-20); CRP < 2.90 mg/L (0.0-3.0); Calcium,Total 9.1 mg/dL (8.5-10.1); Chloride 106 mmol/L (98-107); Creatinine, Serum 0.64 mg/dL (0.55-1.02); EST Glomerular Filtration Rate 101 mL/min (>60); Est Glom Filt Rate - Afr Amer 122 mL/min (>60); Globulin 3.6 g/dL (2.2-4.2); Glucose 101 mg/dL (74-106); Potassium 3.8 mmol/L (3.5-5.1); Protein, Total 7.5 g/dL (6.4-8.2); Rheumatoid Factor < 10.0 IU/mL (<15); Sodium Level 139 mmol/L (136-145)
[2020-07-28 10:45] LABS: Hepatitis B Surface Antibody Non-Reactive; Hepatitis B Surface Antigen Non-Reactive (Nonreactive); Hepatitis C Antibody Non-Reactive (Nonreactive)
[2020-07-30 10:09] LABS: CCP IgG Antibodies 7 units (0-19); Hepatitis B Core AB IgM Negative (Negative)
== END ==
PROVIDERS: PCP Nurse Practitioner Primary Care; Referring Provider Internal Medicine Rheumatology; Visit Provider Internal Medicine Rheumatology
DX: M06.4 Inflammatory polyarthropathy (principal); M79.7 Fibromyalgia; M48.061 Spinal stenosis, lumbar region without neurogenic claudication; I10 Essential (primary) hypertension; E78.5 Hyperlipidemia, unspecified; E89.0 Postprocedural hypothyroidism
CPT/HCPCS: 36415; 80053; 85025; 85652; 86140; 86200; 86431; 86705; 86706; 86803; 87340

== ENCOUNTER 2020-08-12 08:00 | Outpatient (RCR) | payer OTHER, SELFPAY ==
[2020-05-24 10:05] VITALS: BMI 27.0
--- NOTE | 2020-05-25 14:50 | HP.PTEVAL ---
Patient's Visit Information SANYA ALEJANDRO is a 59 year old F referred to Physical Therapy by Dr. Kathie Martinez MD with a diagnosis of L hip and Leg pain. Date of Evaluation: 05/25/20 Physical Therapist: Yuriy Johnson, DPT, OCS, CSCS - Visit Plan Frequency: 2x /Week Duration: 4-6 Weeks Plan: water therapy 2x/week for 4 weeks for. 1. HS and piriformis and ITB stretch on L. 2. core adn LE strength progress to I pool program. 3. LB AROM in pool ext adn flexion. 4. Monitor L heel lift put in shoe today(pt purchased) - Subjective L leg has been hurting. In March, insidiously, got R leg pain. Doctor put on prednisone and muscle relaxers. Got chirpractic and TENS also. L leg started swelling and pain moved into tailbone adn LB. Not a fun month. Currently L leg> R leg. Hard to sit due to L hip pain. Has h/o back surgery in February 2017 rods in low back and fusion and laminectomy. It helped her to function. Doing most things since surgery. 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 Does a lot of stooping and squatting as she won't bend at the waist since surgery. Has steps up to bedroom and they are challenging with L. Holding grandbabies on lap is painful. Sit on stool can be painful. Takes pm pill and gets up at night, sleeping with feet up or pillow between knees. Swings feet into car as she cannot use L leg much. No regular exercises, stopped back exercises ball squeezes, planks, marching, clams etc, stopped in March. Basic ADLs are ok but hard to sit on pot too long. - Pain L leg pain Pain Intensity (Out of 10): 3 Pain Intensity Range: 3 Comment: Use L leg to lead is worse - Objective R leg 1/4 inch longer. R pelvis 1/4 higher than left in frontal plane stance. Has orthotics in shoes but no heel height difference. Posture is stiff LB and flat. Tender throughout L parapsinals, gluts, ITB and prifromis area moderately. L/S AROM ext mod limtied, flexion mod limited, , SB min limited L and mod R. Slight increases in pain. Reflexes 1/3 patella and achilles B. Sensation WNL to gross light touch B feet adn LE. Strength in LE 4-/5 except hip ext adn abd 3+ B, L with some pain and HS L causing some discomfort. - SLR. - Slump test. HS and ITB and quad all mod tight, pirifromis min tight. - Goals Goal 1:: 0-1/10 pain at all times and intermittent Goal Time Frame: 4-6 Weeks Goal 2:: Pt feel 75% better and able to do housework without hesitation Goal Time Frame: 4-6 Weeks Goal 3:: Sleep withotu interruption from pain Goal Time Frame: 4-6 Weeks Goal 4:: LEFS 55 score Goal Time Frame: 4-6 Weeks - Rehabilitation Potential Physical Therapy Diagnosis: L hip and leg pain likely from LB Rehabilitation Potential: Fair - Anticipated Interventions Patient/Client Instruction: Educate patient on: Condition, Plan of Care For the Purpose of:: To decrease pain, To improve nutrient delivery to tissue, To increase tolerance to activity/condition/position Therapeutic Exercise to Include: Strength training, Postural training, Flexibilty training, In an aquatic setting, Passive ROM, Active ROM, Dynamic Lumbar Stabilization For the Purpose of:: To decrease pain, To increase ROM, To improve muscle performance and motor function, To increase tolerance to activity/condition/position Orthotics: Shoe insert Comment: L heel lift For the Purpose of:: To decrease pain Thank you for the opportunity to evaluate your patient. For Medicare and Medicare HMO plans, please review the plan of care and approve it. It will need to be FAXED BACK to us at [phone] for Medicare purposes. For Medicare only, by signing this I certify the plan of care. Please let me know if there are questions or concerns regarding this plan of care. Physician Signature: Date:
--- NOTE | 2020-06-23 16:58 | HP.PTREVAL_ITS ---
Dr. Kathie Martinez MD, It has been my pleasure to treat SANYA ALEJANDRO over the last 9 visits for L hip and Leg pain. Please see the progress note below for an update on the physical therapy plan of care! Subjective: A little better!Saw Dr. fonseca and agreed that heel lift is appropriate. Been wearing it and it helps. Will get new orthotics from [facility]. Saw massage therapist weekly. Still feels like she is sitting on a golf ball intermittently when sitting or lying on floor. 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 Feels it in back if sits too long L LB and butt. No more sciatica in R LE. Squatting is easier without cramping. Cannot alternate feet up steps with L still grabs. Objective/Function: L/S AROM without pain and decent motion. Tenderness L glut, piriformis, ITB, HS moderately. Strength hip ext L 3+ R 4-, rotations hip 3+ B. hip flexion 4- B, hip abd 3 L and 4- R. Walks well. steps reciprocal without rail but weak adn painful L glut area. ROM L hip PROM WNL and symmetrical adn without pain. Plan Plan: 2x/week for 4 weeks for. MH, rollout to L post glut, piri, HS adn ITB and stretch same. Work toward strength of these muscles adn progression to HEP. Pt to continue pool ex on her own in community pool . Questionable prognosis toward goals. goals still appropriate adn new added. Goals Goal 1:: 0-1/10 pain at all times and intermittent Goal Time Frame: 4-6 Weeks Goal Progress: Progressing Goal 2:: Pt feel 75% better and able to do housework without hesitation Goal Time Frame: 4-6 Weeks Goal Progress: Progressing Goal 3:: Sleep withotu interruption from pain Goal Time Frame: 4-6 Weeks Goal Progress: with pm pill, on side Goal 4:: LEFS 55 score Goal Time Frame: 4-6 Weeks Goal Progress: Progressing Goal 5:: Walk up and dwon steps without L hip pain and no tenderness L ITB/glut area greater than R side. Goal Time Frame: 2-4 Weeks Goal Progress: NEW GOAL Anticipated Interventions Patient/Client Instruction: Educate patient on: Condition, Plan of Care For the Purpose of:: To decrease pain, To improve nutrient delivery to tissue, To increase tolerance to activity/condition/position Therapeutic Exercise to Include: Strength training, Postural training, Flexibilty training, In an aquatic setting, Passive ROM, Active ROM, Dynamic Lumbar Stabilization For the Purpose of:: To decrease pain, To increase ROM, To improve muscle performance and motor function, To increase tolerance to activity/condition/position Manual Therapy Techniques to Include: Soft tissue mobilization For the Purpose of:: To improve muscle performance and motor function Orthotics: Shoe insert Comment: L heel lift For the Purpose of:: To decrease pain Please do not hesitate to contact me at [phone] by phone or if you have questions or concerns regarding this new plan of care! Sincerely, Yuriy Johnson, DARCIT, OCS, CSCS
--- NOTE | 2020-07-29 08:53 | HP.PTREVAL_ITS ---
Dr. Kathie Martinez MD, It has been my pleasure to treat SANYA ALEJANDRO over the last 16 visits for L hip and Leg pain. Please see the progress note below for an update on the physical therapy plan of care! Subjective: No pool workout happening. 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 Pain is diminishing. I can move better. Muscles not as tight. Pain this week is around 3/10 most days much of time. saw Dr. Hanley and may have FM. stretching at home on off days. Sleep is OK for the most part. 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 Got new orthotics with heel lift built in. No f/u with Dr. MARTINEZ. Pt wants to join gym by her house but not sure what to do at that gym. Objective/Function: LB AROM full and without pain today, slightly tight posterior improved with repetitive. Steps normal and reciprocal with one rail. Normal gait. New orthotics in today. Plan Plan: 2x/week for 2 weeks for. teach machine based strength and CV ex so pt can join community gym. Focus general strength of LE/posture core. Fair prognosis to new goal. Goals Goal 1:: 0-1/10 pain at all times and intermittent Goal Time Frame: 4-6 Weeks Goal Progress: near met. Goal 2:: Pt feel 75% better and able to do housework without hesitation Goal Time Frame: 4-6 Weeks Goal Progress: Goal Met Goal 3:: Sleep withotu interruption from pain Goal Time Frame: 4-6 Weeks Goal Progress: for the most part Goal 4:: LEFS 55 score Goal Time Frame: 4-6 Weeks Goal Progress: Progressing Goal 5:: Walk up and dwon steps without L hip pain and no tenderness L ITB/glut area greater than R side. Goal Time Frame: 2-4 Weeks Goal Progress: Goal Met Goal 6:: I gym ex program to manage symptoms Goal Time Frame: 2 Weeks Goal Progress: NEW GOAL Anticipated Interventions Patient/Client Instruction: Educate patient on: Condition, Plan of Care For the Purpose of:: To decrease pain, To improve nutrient delivery to tissue, To increase tolerance to activity/condition/position Therapeutic Exercise to Include: Strength training, Postural training, Flexibilty training, In an aquatic setting, Passive ROM, Active ROM, Dynamic Lumbar Stabilization For the Purpose of:: To decrease pain, To increase ROM, To improve muscle performance and motor function, To increase tolerance to activity/condition/position Manual Therapy Techniques to Include: Soft tissue mobilization For the Purpose of:: To improve muscle performance and motor function Orthotics: Shoe insert Comment: L heel lift For the Purpose of:: To decrease pain Please do not hesitate to contact me at [phone] by phone or Fax: if you have questions or concerns regarding this new plan of care! Sincerely, Yuriy Johnson, DPT, OCS, CSCS
--- NOTE | 2020-08-12 08:46 | HP.PTDCSUM ---
It has been my pleasure to treat SANYA ALEJANDRO referred by Dr. Kathie Martinez MD, with the diagnosis of L hip and Leg pain for a total of 20 visit(s). Discharge Date: 08/12/20 Please see the following information for a summary of their discharge status. Subjective: I think I am getting better. Working out in the gym is not crampy anymore. Pain in leg is not severe. My butt still hurts. R leg can hurt laterally if sits too long. Pain is 2/10, two plus with sitting. Walking too far can cause pain also. Can walk further atkins a month ago. Most nights sleep are OK. Plas to join and continue pool and gym ex. L leg pain Pain Intensity (Out of 10): 0 Lumbar Spine Pain Intensity (Out of 10): 0 RLE Pain Intensity (Out of 10): 2 % Improvement: 80 Objective/Function: Full aROM LB without increased pain, slight stretching in R lateral leg with flex and ext. Walks well today without deficits. Feels confident with workout in pool and gym and will continue. Has been given membership forms . Goal 1:: 0-1/10 pain at all times and intermittent Goal Progress: near met. Goal 2:: Pt feel 75% better and able to do housework without hesitation Goal Progress: Goal Met Goal 3:: Sleep withotu interruption from pain Goal Progress: for the most part Goal 4:: LEFS 55 score Goal Progress: Goal Met Goal 5:: Walk up and dwon steps without L hip pain and no tenderness L ITB/glut area greater than R side. Goal Progress: Goal Met Goal 6:: I gym ex program to manage symptoms Goal Progress: Goal Met Plan: d/c Discharge Comments: Pt neha ontinue via membership in [employer]. Doctor Dayan doesn't want her in the gm more than 2x/week. If there are questions or concerns regarding this patient's physical therapy, please feel free to call me at [phone]. Thank you for the referral of this patient. Sincerely, Yuiry Johnson, DPT, OCS, CSCS
== END 2020-08-12 19:00 | disposition home or self-care (01) ==
LOC: PT 08:00
PROVIDERS: PCP Nurse Practitioner Primary Care; Referring Provider Orthopaedic Surgery; Visit Provider Orthopaedic Surgery
DX: M25.552 Pain in left hip (principal); M79.605 Pain in left leg
CPT/HCPCS: 97110; 97113; 97140; 97162; 97164

== ENCOUNTER → 2020-08-29 11:32 | Outpatient (CLI) | payer OTHER, SELFPAY ==
[2020-08-29 15:42] LABS: Absolute Lymphocyte Count 2.91 X10^3/uL (0.83-4.51); Basophil# 0.07 X10^3/uL; Basophil% 0.7 % (0-1); Eosinophil# 0.17 X10^3/uL; Eosinophils% 1.6 % (0-5); Hematocrit 42.2 % (37-47); Hemoglobin 13.3 g/dL (12.0-15.0); Lymphocyte # 2.91 X10^3/ul (4.0); Mean Corp Hgb Conc 31.5 g/dL (32-36); Mean Corpuscular Hgb 30.9 pg (27.0-32.0); Mean Corpuscular Volume 97.9 fL (81-99); Monocyte# 0.59 X10^3/uL; Monocyte% 5.5 % (0-10); NRBC Flagged by Analyzer 0 % (0-5); Neutrophil # 6.99 X10^3/uL (2.7-7.7); Neutrophil % 64.9 % (47-70); Platelet Count 302 K/mm3 (150-450); RBC Distribution Width CV 11.7 % (11.6-14.6); RBC Distribution Width SD 42.4 fl (35.1-43.9); Red Blood Count 4.31 M/mm3 (4.2-5.4); White Blood Count 10.8 K/mm3 (4.4-11.0)
[2020-08-29 16:09] LABS: ALB/GLOB Ratio 1.1 RATIO (0.9-2.4); AST(SGOT) 21 U/L (15-37); Alanine Aminotransfer ALT/SGPT 41 U/L (13-56); Albumin, Serum 3.8 g/dL (3.2-5.0); Alkaline Phosphatase 75 U/L (45-117); Anion Gap 6 (5-15); BUN 16 mg/dL (7-18); BUN/Creat Ratio 21.7 RATIO (10-20); Calcium,Total 9.1 mg/dL (8.5-10.1); Chloride 104 mmol/L (98-107); Creatinine, Serum 0.74 mg/dL (0.55-1.02); EST Glomerular Filtration Rate 85 mL/min (>60); Est Glom Filt Rate - Afr Amer 103 mL/min (>60); Globulin 3.5 g/dL (2.2-4.2); Glucose 103 mg/dL (74-106); Potassium 4.1 mmol/L (3.5-5.1); Protein, Total 7.3 g/dL (6.4-8.2); Sodium Level 139 mmol/L (136-145)
== END ==
PROVIDERS: PCP Nurse Practitioner Primary Care; Referring Provider Internal Medicine Rheumatology; Visit Provider Internal Medicine Rheumatology
DX: M06.4 Inflammatory polyarthropathy (principal); M79.7 Fibromyalgia; M48.061 Spinal stenosis, lumbar region without neurogenic claudication; I10 Essential (primary) hypertension; E78.5 Hyperlipidemia, unspecified; E89.0 Postprocedural hypothyroidism; Z79.899 Other long term (current) drug therapy
CPT/HCPCS: 36415; 80053; 85025

== ENCOUNTER → 2020-11-08 14:56 | Outpatient (CLI) | payer OTHER, SELFPAY ==
[2020-11-08 17:54] LABS: Absolute Lymphocyte Count 3.01 X10^3/uL (0.83-4.51); Absolute Neutrophil Count 3.7 X10^3/uL (2.0-7.7); Basophil# 0.05 X10^3/uL; Basophil% 0.7 % (0-1); Eosinophil# 0.14 X10^3/uL; Eosinophils% 1.8 % (0-5); Hematocrit 40.5 % (37-47); Hemoglobin 12.8 g/dL (12.0-15.0); Lymphocyte # 3.01 X10^3/ul (4.0); Lymphocyte % 39.5 % (19-41); Mean Corp Hgb Conc 31.6 g/dL (32-36); Mean Corpuscular Hgb 31.4 pg (27.0-32.0); Mean Corpuscular Volume 99.5 fL (81-99); Mean Platelet Vol. 9.9 fl (6.2-12.0); Monocyte# 0.66 X10^3/uL; Monocyte% 8.7 % (0-10); NRBC Flagged by Analyzer 0 % (0-5); Neutrophil # 3.74 X10^3/uL (2.7-7.7); Platelet Count 322 K/mm3 (150-450); RBC Distribution Width CV 11.9 % (11.6-14.6); RBC Distribution Width SD 43.5 fl (35.1-43.9); Red Blood Count 4.07 M/mm3 (4.2-5.4); White Blood Count 7.6 K/mm3 (4.4-11.0)
[2020-11-08 18:05] LABS: ALB/GLOB Ratio 1.2 RATIO (0.9-2.4); AST(SGOT) 16 U/L (15-37); Alanine Aminotransfer ALT/SGPT 40 U/L (13-56); Albumin, Serum 3.8 g/dL (3.2-5.0); Alkaline Phosphatase 81 U/L (45-117); Anion Gap 4 (5-15); BUN 14 mg/dL (7-18); BUN/Creat Ratio 18.8 RATIO (10-20); Calcium,Total 9.1 mg/dL (8.5-10.1); Chloride 108 mmol/L (98-107); Creatinine, Serum 0.74 mg/dL (0.55-1.02); EST Glomerular Filtration Rate 84 mL/min (>60); Est Glom Filt Rate - Afr Amer 102 mL/min (>60); Globulin 3.3 g/dL (2.2-4.2); Glucose 107 mg/dL (74-106); Protein, Total 7.1 g/dL (6.4-8.2); Sodium Level 141 mmol/L (136-145)
== END ==
PROVIDERS: PCP Nurse Practitioner Primary Care; Referring Provider Internal Medicine Rheumatology; Visit Provider Internal Medicine Rheumatology
DX: M06.4 Inflammatory polyarthropathy (principal); M79.7 Fibromyalgia; M48.061 Spinal stenosis, lumbar region without neurogenic claudication; I10 Essential (primary) hypertension; E78.5 Hyperlipidemia, unspecified; E89.0 Postprocedural hypothyroidism; Z79.899 Other long term (current) drug therapy
CPT/HCPCS: 36415; 80053; 85025

== ENCOUNTER → 2021-01-26 13:10 | Outpatient (CLI) | payer OTHER, SELFPAY ==
[2021-01-26 15:25] LABS: Absolute Lymphocyte Count 3.67 X10^3/uL (0.83-4.51); Absolute Neutrophil Count 2.9 X10^3/uL (2.0-7.7); Basophil# 0.05 X10^3/uL; Basophil% 0.7 % (0-1); Eosinophil# 0.13 X10^3/uL; Eosinophils% 1.7 % (0-5); Hematocrit 39.1 % (37-47); Hemoglobin 12.5 g/dL (12.0-15.0); Lymphocyte # 3.67 X10^3/ul (0.83-4.51); Lymphocyte % 49.3 % (19-41); Mean Platelet Vol. 9.5 fl (6.2-12.0); Monocyte# 0.64 X10^3/uL; Monocyte% 8.6 % (0-10); NRBC Flagged by Analyzer 0 % (0-5); Neutrophil # 2.94 X10^3/uL (2.7-7.7); Neutrophil % 39.6 % (47-70); Platelet Count 346 K/mm3 (150-450); RBC Distribution Width CV 11.9 % (11.6-14.6); RBC Distribution Width SD 43.1 fl (35.1-43.9); Red Blood Count 3.91 M/mm3 (4.2-5.4); White Blood Count 7.4 K/mm3 (4.4-11.0)
[2021-01-26 15:50] LABS: ALB/GLOB Ratio 1.1 RATIO (0.9-2.4); AST(SGOT) 16 U/L (15-37); Alanine Aminotransfer ALT/SGPT 32 U/L (13-56); Albumin, Serum 3.7 g/dL (3.2-5.0); Alkaline Phosphatase 92 U/L (45-117); Anion Gap 2 (5-15); BUN 17 mg/dL (7-18); BUN/Creat Ratio 28.1 RATIO (10-20); Calcium,Total 9.2 mg/dL (8.5-10.1); Chloride 105 mmol/L (98-107); EST Glomerular Filtration Rate 107 mL/min (>60); Est Glom Filt Rate - Afr Amer 130 mL/min (>60); Globulin 3.4 g/dL (2.2-4.2); Glucose 90 mg/dL (74-106); Potassium 4.2 mmol/L (3.5-5.1); Protein, Total 7.1 g/dL (6.4-8.2); Sodium Level 138 mmol/L (136-145)
== END ==
PROVIDERS: PCP Nurse Practitioner Primary Care; Referring Provider Internal Medicine Rheumatology; Visit Provider Internal Medicine Rheumatology
DX: M06.4 Inflammatory polyarthropathy (principal); M79.7 Fibromyalgia; M48.061 Spinal stenosis, lumbar region without neurogenic claudication; I10 Essential (primary) hypertension; E78.5 Hyperlipidemia, unspecified; E89.0 Postprocedural hypothyroidism; Z79.899 Other long term (current) drug therapy
CPT/HCPCS: 36415; 80053; 85025

== ENCOUNTER → 2021-04-13 08:59 | Outpatient (CLI) | payer BC, SELFPAY ==
[2021-04-13 10:14] LABS: Absolute Lymphocyte Count 2.06 X10^3/uL (0.83-4.51); Absolute Neutrophil Count 7.5 X10^3/uL (2.0-7.7); Basophil# 0.05 X10^3/uL; Basophil% 0.5 % (0-1); Eosinophil# 0.09 X10^3/uL; Eosinophils% 0.9 % (0-5); Hematocrit 38.6 % (37-47); Hemoglobin 12.3 g/dL (12.0-15.0); Lymphocyte # 2.06 X10^3/ul (0.83-4.51); Lymphocyte % 20.5 % (19-41); Mean Corp Hgb Conc 31.9 g/dL (32-36); Mean Corpuscular Volume 100.5 fL (81-99); Mean Platelet Vol. 9.4 fl (6.2-12.0); Monocyte# 0.35 X10^3/uL; Monocyte% 3.5 % (0-10); NRBC Flagged by Analyzer 0 % (0-5); Neutrophil # 7.46 X10^3/uL (2.7-7.7); Neutrophil % 74.4 % (47-70); Platelet Count 334 K/mm3 (150-450); RBC Distribution Width CV 11.9 % (11.6-14.6); RBC Distribution Width SD 43.5 fl (35.1-43.9); Red Blood Count 3.84 M/mm3 (4.2-5.4)
[2021-04-13 10:59] LABS: ALB/GLOB Ratio 1.1 RATIO (0.9-2.4); AST(SGOT) 19 U/L (15-37); Alanine Aminotransfer ALT/SGPT 34 U/L (13-56); Albumin, Serum 3.6 g/dL (3.2-5.0); Alkaline Phosphatase 105 U/L (45-117); Anion Gap 9 (5-15); BUN 17 mg/dL (7-18); BUN/Creat Ratio 21.2 RATIO (10-20); Chloride 101 mmol/L (98-107); EST Glomerular Filtration Rate 77 mL/min (>60); Est Glom Filt Rate - Afr Amer 93 mL/min (>60); Globulin 3.3 g/dL (2.2-4.2); Glucose 144 mg/dL (74-106); Potassium 3.8 mmol/L (3.5-5.1); Protein, Total 6.9 g/dL (6.4-8.2); Sodium Level 138 mmol/L (136-145)
== END ==
PROVIDERS: PCP Nurse Practitioner Primary Care; Referring Provider Internal Medicine Rheumatology; Visit Provider Internal Medicine Rheumatology
DX: M06.4 Inflammatory polyarthropathy (principal); M79.7 Fibromyalgia; M48.061 Spinal stenosis, lumbar region without neurogenic claudication; I10 Essential (primary) hypertension; E78.5 Hyperlipidemia, unspecified; E89.0 Postprocedural hypothyroidism; Z79.899 Other long term (current) drug therapy
CPT/HCPCS: 36415; 80053; 85025

== ENCOUNTER → 2021-07-04 08:41 | Outpatient (CLI) | payer BC, SELFPAY ==
[2021-07-04 10:21] LABS: Absolute Lymphocyte Count 2.43 X10^3/uL (0.83-4.51); Absolute Neutrophil Count 2.7 X10^3/uL (2.0-7.7); Basophil# 0.06 X10^3/uL; Eosinophil# 0.14 X10^3/uL; Eosinophils% 2.4 % (0-5); Hematocrit 36.6 % (37-47); Hemoglobin 11.9 g/dL (12.0-15.0); Lymphocyte # 2.43 X10^3/ul (0.83-4.51); Lymphocyte % 42.2 % (19-41); Mean Corp Hgb Conc 32.5 g/dL (32-36); Mean Corpuscular Hgb 32.8 pg (27.0-32.0); Mean Corpuscular Volume 100.8 fL (81-99); Mean Platelet Vol. 9.8 fl (6.2-12.0); Monocyte# 0.47 X10^3/uL; Monocyte% 8.2 % (0-10); NRBC Flagged by Analyzer 0 % (0-5); Neutrophil # 2.65 X10^3/uL (2.7-7.7); Platelet Count 280 K/mm3 (150-450); RBC Distribution Width CV 11.7 % (11.6-14.6); RBC Distribution Width SD 42.6 fl (35.1-43.9); Red Blood Count 3.63 M/mm3 (4.2-5.4); White Blood Count 5.8 K/mm3 (4.4-11.0)
[2021-07-04 10:56] LABS: AST(SGOT) 24 U/L (15-37); Alanine Aminotransfer ALT/SGPT 32 U/L (13-56); Albumin, Serum 3.4 g/dL (3.2-5.0); Alkaline Phosphatase 94 U/L (45-117); Anion Gap 6 (5-15); BUN 21 mg/dL (7-18); BUN/Creat Ratio 30.2 RATIO (10-20); Chloride 106 mmol/L (98-107); EST Glomerular Filtration Rate 91 mL/min (>60); Est Glom Filt Rate - Afr Amer 110 mL/min (>60); Globulin 3.4 g/dL (2.2-4.2); Glucose 97 mg/dL (74-106); Potassium 3.9 mmol/L (3.5-5.1); Protein, Total 6.8 g/dL (6.4-8.2); Sodium Level 139 mmol/L (136-145)
== END ==
PROVIDERS: PCP Nurse Practitioner Primary Care; Referring Provider Internal Medicine Rheumatology; Visit Provider Internal Medicine Rheumatology
DX: M06.4 Inflammatory polyarthropathy (principal); M79.7 Fibromyalgia; M48.061 Spinal stenosis, lumbar region without neurogenic claudication; I10 Essential (primary) hypertension; E78.5 Hyperlipidemia, unspecified; E89.0 Postprocedural hypothyroidism; Z79.899 Other long term (current) drug therapy
CPT/HCPCS: 36415; 80053; 85025

== ENCOUNTER 2021-10-18 11:29 | Outpatient (CLI) | payer BC, SELFPAY ==
[2021-10-18 15:45] LABS: Absolute Lymphocyte Count 2.68 X10^3/uL (0.83-4.51); Absolute Neutrophil Count 2.7 X10^3/uL (2.0-7.7); Basophil# 0.05 X10^3/uL; Basophil% 0.8 % (0-1); Eosinophil# 0.14 X10^3/uL; Eosinophils% 2.3 % (0-5); Hemoglobin 12.2 g/dL (12.0-15.0); Lymphocyte # 2.68 X10^3/ul (0.83-4.51); Lymphocyte % 44.3 % (19-41); Mean Corp Hgb Conc 32.1 g/dL (32-36); Mean Corpuscular Hgb 31.6 pg (27.0-32.0); Mean Corpuscular Volume 98.4 fL (81-99); Monocyte# 0.45 X10^3/uL; Monocyte% 7.4 % (0-10); NRBC Flagged by Analyzer 0 % (0-5); Neutrophil # 2.72 X10^3/uL (2.7-7.7); Platelet Count 302 K/mm3 (150-450); RBC Distribution Width CV 12.3 % (11.6-14.6); RBC Distribution Width SD 44.6 fl (35.1-43.9); Red Blood Count 3.86 M/mm3 (4.2-5.4); White Blood Count 6.1 K/mm3 (4.4-11.0)
[2021-10-18 16:03] LABS: ALB/GLOB Ratio 1.2 RATIO (0.9-2.4); AST(SGOT) 15 U/L (15-37); Alanine Aminotransfer ALT/SGPT 34 U/L (13-56); Albumin, Serum 3.8 g/dL (3.2-5.0); Alkaline Phosphatase 82 U/L (45-117); Anion Gap 7 (5-15); BUN 17 mg/dL (7-18); BUN/Creat Ratio 26.7 RATIO (10-20); Calcium,Total 9.4 mg/dL (8.5-10.1); Chloride 105 mmol/L (98-107); Creatinine, Serum 0.64 mg/dL (0.55-1.02); EST Glomerular Filtration Rate 101 mL/min (>60); Est Glom Filt Rate - Afr Amer 122 mL/min (>60); Globulin 3.2 g/dL (2.2-4.2); Glucose 87 mg/dL (74-106); Potassium 4.5 mmol/L (3.5-5.1); Sodium Level 141 mmol/L (136-145)
== END 2021-10-18 23:59 | disposition short-term general hospital (02) ==
LOC: MTLAB 11:31
PROVIDERS: PCP Nurse Practitioner Primary Care; Referring Provider Internal Medicine Rheumatology; Visit Provider Internal Medicine Rheumatology
DX: M06.4 Inflammatory polyarthropathy (principal); Z79.899 Other long term (current) drug therapy; M79.7 Fibromyalgia; M48.061 Spinal stenosis, lumbar region without neurogenic claudication; I10 Essential (primary) hypertension; E78.5 Hyperlipidemia, unspecified; E89.0 Postprocedural hypothyroidism
CPT/HCPCS: 36415; 80053; 85025

== ENCOUNTER 2022-01-03 08:11 | Outpatient (CLI) | payer BC, SELFPAY ==
[2022-01-03 10:23] LABS: Absolute Lymphocyte Count 1.77 X10^3/uL (0.83-4.51); Absolute Neutrophil Count 5.8 X10^3/uL (2.0-7.7); Basophil# 0.11 X10^3/uL; Basophil% 1.3 % (0-1); Eosinophil# 0.19 X10^3/uL; Eosinophils% 2.2 % (0-5); Hematocrit 35.9 % (37-47); Hemoglobin 11.5 g/dL (12.0-15.0); Lymphocyte # 1.77 X10^3/ul (0.83-4.51); Lymphocyte % 20.9 % (19-41); Mean Corpuscular Hgb 31.8 pg (27.0-32.0); Mean Corpuscular Volume 99.2 fL (81-99); Mean Platelet Vol. 10.1 fl (6.2-12.0); Monocyte# 0.59 X10^3/uL; NRBC Flagged by Analyzer 0 % (0-5); Neutrophil # 5.78 X10^3/uL (2.7-7.7); Neutrophil % 68.4 % (47-70); Platelet Count 256 K/mm3 (150-450); RBC Distribution Width CV 11.8 % (11.6-14.6); Red Blood Count 3.62 M/mm3 (4.2-5.4); White Blood Count 8.5 K/mm3 (4.4-11.0)
[2022-01-03 10:40] LABS: ALB/GLOB Ratio 1.2 RATIO (0.9-2.4); AST(SGOT) 18 U/L (15-37); Alanine Aminotransfer ALT/SGPT 29 U/L (13-56); Albumin, Serum 3.5 g/dL (3.2-5.0); Alkaline Phosphatase 83 U/L (45-117); Anion Gap 5 (5-15); BUN 24 mg/dL (7-18); Calcium,Total 9.2 mg/dL (8.5-10.1); Chloride 106 mmol/L (98-107); Creatinine, Serum 0.77 mg/dL (0.55-1.02); EST Glomerular Filtration Rate 80 mL/min (>60); Est Glom Filt Rate - Afr Amer 97 mL/min (>60); Globulin 2.9 g/dL (2.2-4.2); Glucose 119 mg/dL (74-106); Potassium 4.9 mmol/L (3.5-5.1); Protein, Total 6.4 g/dL (6.4-8.2); Sodium Level 139 mmol/L (136-145)
== END 2022-01-03 23:59 | disposition home or self-care (01) ==
LOC: MTLAB 08:13
PROVIDERS: PCP Nurse Practitioner Primary Care; Referring Provider Internal Medicine Rheumatology; Visit Provider Internal Medicine Rheumatology
DX: M06.4 Inflammatory polyarthropathy (principal); M79.7 Fibromyalgia; M48.061 Spinal stenosis, lumbar region without neurogenic claudication; I10 Essential (primary) hypertension; E78.5 Hyperlipidemia, unspecified; E89.0 Postprocedural hypothyroidism; Z79.899 Other long term (current) drug therapy
CPT/HCPCS: 36415; 80053; 85025

== ENCOUNTER 2022-01-10 09:35 | Outpatient (CLI) | payer BC, SELFPAY ==
[2022-01-12 15:08] LABS: Red Blood Cell Count Test/G6PD 3.68 x10E6/uL (3.77-5.28)
[2022-01-12 16:51] LABS: G6PD Quant Test 292 (127-427)
== END 2022-01-10 23:59 | disposition home or self-care (01) ==
LOC: MTLAB 09:37
PROVIDERS: PCP Nurse Practitioner Primary Care; Referring Provider Internal Medicine Rheumatology; Visit Provider Internal Medicine Rheumatology
DX: M06.4 Inflammatory polyarthropathy (principal); M79.7 Fibromyalgia; M48.061 Spinal stenosis, lumbar region without neurogenic claudication; M19.071 Primary osteoarthritis, right ankle and foot; E78.5 Hyperlipidemia, unspecified; E89.0 Postprocedural hypothyroidism; I10 Essential (primary) hypertension; Z79.899 Other long term (current) drug therapy
CPT/HCPCS: 36415; 82955

== ENCOUNTER → 2022-02-28 | Outpatient (CLI) | payer BC, SELFPAY ==
[2022-02-28 12:14] LABS: Absolute Lymphocyte Count 2.36 X10^3/uL (0.83-4.51); Absolute Neutrophil Count 2.3 X10^3/uL (2.0-7.7); Basophil# 0.06 X10^3/uL; Basophil% 1.1 % (0-1); Eosinophil# 0.17 X10^3/uL; Eosinophils% 3.1 % (0-5); Hemoglobin 12.7 g/dL (12.0-15.0); Lymphocyte # 2.36 X10^3/ul (0.83-4.51); Lymphocyte % 43.5 % (19-41); Mean Corp Hgb Conc 32.6 g/dL (32-36); Mean Corpuscular Hgb 33.2 pg (27.0-32.0); Mean Corpuscular Volume 102.1 fL (81-99); Mean Platelet Vol. 9.8 fl (6.2-12.0); Monocyte# 0.58 X10^3/uL; Monocyte% 10.7 % (0-10); NRBC Flagged by Analyzer 0 % (0-5); Neutrophil # 2.26 X10^3/uL (2.7-7.7); Neutrophil % 41.6 % (47-70); Platelet Count 318 K/mm3 (150-450); RBC Distribution Width CV 11.8 % (11.6-14.6); Red Blood Count 3.82 M/mm3 (4.2-5.4); White Blood Count 5.4 K/mm3 (4.4-11.0)
[2022-02-28 12:41] LABS: ALB/GLOB Ratio 1.1 RATIO (0.9-2.4); AST(SGOT) 21 U/L (15-37); Alanine Aminotransfer ALT/SGPT 32 U/L (13-56); Albumin, Serum 3.7 g/dL (3.2-5.0); Alkaline Phosphatase 87 U/L (45-117); Anion Gap 3 (5-15); BUN 15 mg/dL (7-18); Calcium,Total 9.1 mg/dL (8.5-10.1); Chloride 109 mmol/L (98-107); Creatinine, Serum 0.68 mg/dL (0.55-1.02); EST Glomerular Filtration Rate 93 mL/min (>60); Est Glom Filt Rate - Afr Amer 112 mL/min (>60); Globulin 3.3 g/dL (2.2-4.2); Glucose 73 mg/dL (74-106); Potassium 4.9 mmol/L (3.5-5.1); Sodium Level 143 mmol/L (136-145)
== END | disposition home or self-care (01) ==
LOC: MTLAB 09:53
PROVIDERS: PCP Nurse Practitioner Primary Care; Referring Provider Internal Medicine Rheumatology; Visit Provider Internal Medicine Rheumatology
DX: M06.4 Inflammatory polyarthropathy (principal); M79.7 Fibromyalgia; M48.061 Spinal stenosis, lumbar region without neurogenic claudication; I10 Essential (primary) hypertension; E78.5 Hyperlipidemia, unspecified; E89.0 Postprocedural hypothyroidism; Z79.899 Other long term (current) drug therapy
CPT/HCPCS: 36415; 80053; 85025

== ENCOUNTER → 2022-05-21 | Outpatient (CLI) | payer BC, SELFPAY ==
[2022-05-21 15:30] LABS: Absolute Lymphocyte Count 2.99 X10^3/uL (0.83-4.51); Absolute Neutrophil Count 2.6 X10^3/uL (2.0-7.7); Basophil# 0.04 X10^3/uL; Basophil% 0.7 % (0-1); Eosinophil# 0.11 X10^3/uL; Eosinophils% 1.8 % (0-5); Hematocrit 38.9 % (37-47); Hemoglobin 12.5 g/dL (12.0-15.0); Lymphocyte # 2.99 X10^3/ul (0.83-4.51); Lymphocyte % 48.7 % (19-41); Mean Corp Hgb Conc 32.1 g/dL (32-36); Mean Corpuscular Hgb 33.5 pg (27.0-32.0); Mean Corpuscular Volume 104.3 fL (81-99); Mean Platelet Vol. 9.9 fl (6.2-12.0); Monocyte# 0.41 X10^3/uL; Monocyte% 6.7 % (0-10); NRBC Flagged by Analyzer 0 % (0-5); Neutrophil # 2.58 X10^3/uL (2.7-7.7); Neutrophil % 41.9 % (47-70); Platelet Count 267 K/mm3 (150-450); RBC Distribution Width CV 11.7 % (11.6-14.6); RBC Distribution Width SD 44.9 fl (35.1-43.9); Red Blood Count 3.73 M/mm3 (4.2-5.4); White Blood Count 6.1 K/mm3 (4.4-11.0)
[2022-05-21 15:47] LABS: ALB/GLOB Ratio 1.2 RATIO (0.9-2.4); AST(SGOT) 22 U/L (15-37); Alanine Aminotransfer ALT/SGPT 36 U/L (13-56); Albumin, Serum 3.9 g/dL (3.2-5.0); Alkaline Phosphatase 86 U/L (45-117); Anion Gap 5 (5-15); BUN 20 mg/dL (7-18); BUN/Creat Ratio 29.4 RATIO (10-20); Calcium,Total 9.1 mg/dL (8.5-10.1); Chloride 105 mmol/L (98-107); Creatinine, Serum 0.68 mg/dL (0.55-1.02); EST Glomerular Filtration Rate 93 mL/min (>60); Est Glom Filt Rate - Afr Amer 113 mL/min (>60); Globulin 3.3 g/dL (2.2-4.2); Glucose 95 mg/dL (74-106); Potassium 4.7 mmol/L (3.5-5.1); Protein, Total 7.2 g/dL (6.4-8.2); Sodium Level 140 mmol/L (136-145)
== END | disposition home or self-care (01) ==
LOC: MTLAB 13:43
PROVIDERS: PCP Nurse Practitioner Primary Care; Referring Provider Internal Medicine Rheumatology; Visit Provider Internal Medicine Rheumatology
DX: M06.4 Inflammatory polyarthropathy (principal); M48.061 Spinal stenosis, lumbar region without neurogenic claudication; M19.071 Primary osteoarthritis, right ankle and foot; E78.5 Hyperlipidemia, unspecified; E89.0 Postprocedural hypothyroidism; I10 Essential (primary) hypertension; Z79.899 Other long term (current) drug therapy
CPT/HCPCS: 36415; 80053; 85025

== ENCOUNTER → 2022-08-16 | Outpatient (CLI) | payer BC, SELFPAY ==
[2022-08-16 10:22] LABS: Absolute Lymphocyte Count 1.43 X10^3/uL (0.83-4.51); Absolute Neutrophil Count 3.1 X10^3/uL (2.0-7.7); Basophil# 0.05 X10^3/uL; Eosinophil# 0.07 X10^3/uL; Eosinophils% 1.3 % (0-5); Hematocrit 37.6 % (37-47); Hemoglobin 12.3 g/dL (12.0-15.0); Lymphocyte # 1.43 X10^3/ul (0.83-4.51); Lymphocyte % 27.4 % (19-41); Mean Corp Hgb Conc 32.7 g/dL (32-36); Mean Corpuscular Hgb 34.6 pg (27.0-32.0); Mean Corpuscular Volume 105.6 fL (81-99); Mean Platelet Vol. 9.6 fl (6.2-12.0); Monocyte# 0.48 X10^3/uL; Monocyte% 9.2 % (0-10); NRBC Flagged by Analyzer 0 % (0-5); Neutrophil # 3.14 X10^3/uL (2.7-7.7); Neutrophil % 60.3 % (47-70); Platelet Count 258 K/mm3 (150-450); RBC Distribution Width CV 11.7 % (11.6-14.6); RBC Distribution Width SD 45.9 fl (35.1-43.9); Red Blood Count 3.56 M/mm3 (4.2-5.4); White Blood Count 5.2 K/mm3 (4.4-11.0)
[2022-08-16 10:46] LABS: ALB/GLOB Ratio 1.1 RATIO (0.9-2.4); AST(SGOT) 20 U/L (15-37); Alanine Aminotransfer ALT/SGPT 31 U/L (13-56); Albumin, Serum 3.6 g/dL (3.2-5.0); Alkaline Phosphatase 85 U/L (45-117); Anion Gap 5 (5-15); BUN 19 mg/dL (7-18); BUN/Creat Ratio 27.1 RATIO (10-20); Chloride 106 mmol/L (98-107); EST Glomerular Filtration Rate 90 mL/min (>60); Est Glom Filt Rate - Afr Amer 109 mL/min (>60); Globulin 3.2 g/dL (2.2-4.2); Glucose 74 mg/dL (74-106); Potassium 4.3 mmol/L (3.5-5.1); Protein, Total 6.8 g/dL (6.4-8.2); Sodium Level 139 mmol/L (136-145)
== END | disposition home or self-care (01) ==
LOC: MTLAB 09:09
PROVIDERS: PCP Nurse Practitioner Primary Care; Referring Provider Internal Medicine Rheumatology; Visit Provider Internal Medicine Rheumatology
DX: M06.4 Inflammatory polyarthropathy (principal); M48.061 Spinal stenosis, lumbar region without neurogenic claudication; M19.071 Primary osteoarthritis, right ankle and foot; I10 Essential (primary) hypertension; E78.5 Hyperlipidemia, unspecified; E89.0 Postprocedural hypothyroidism; Z79.899 Other long term (current) drug therapy
CPT/HCPCS: 36415; 80053; 85025

== ENCOUNTER → 2022-11-14 | Outpatient (CLI) | payer BC, SELFPAY ==
[2022-11-14 10:23] LABS: Absolute Lymphocyte Count 1.87 X10^3/uL (0.83-4.51); Absolute Neutrophil Count 2.8 X10^3/uL (2.0-7.7); Basophil# 0.05 X10^3/uL; Basophil% 0.9 % (0-1); Eosinophil# 0.14 X10^3/uL; Eosinophils% 2.6 % (0-5); Hematocrit 34.4 % (37-47); Lymphocyte # 1.87 X10^3/ul (0.83-4.51); Lymphocyte % 34.7 % (19-41); Mean Corpuscular Hgb 33.3 pg (27.0-32.0); Mean Corpuscular Volume 104.2 fL (81-99); Mean Platelet Vol. 9.9 fl (6.2-12.0); Monocyte% 9.3 % (0-10); NRBC Flagged by Analyzer 0 % (0-5); Neutrophil # 2.82 X10^3/uL (2.7-7.7); Neutrophil % 52.3 % (47-70); Platelet Count 231 K/mm3 (150-450); RBC Distribution Width CV 11.9 % (11.6-14.6); RBC Distribution Width SD 46.1 fl (35.1-43.9); White Blood Count 5.4 K/mm3 (4.4-11.0)
[2022-11-14 10:47] LABS: ALB/GLOB Ratio 1.2 RATIO (0.9-2.4); AST(SGOT) 38 U/L (15-37); Alanine Aminotransfer ALT/SGPT 40 U/L (13-56); Albumin, Serum 3.7 g/dL (3.2-5.0); Alkaline Phosphatase 79 U/L (45-117); Anion Gap 5 (5-15); BUN 16 mg/dL (7-18); BUN/Creat Ratio 23.9 RATIO (10-20); Calcium,Total 8.9 mg/dL (8.5-10.1); Chloride 106 mmol/L (98-107); Creatinine, Serum 0.67 mg/dL (0.55-1.02); EST Glomerular Filtration Rate 95 mL/min (>60); Est Glom Filt Rate - Afr Amer 114 mL/min (>60); Glucose 99 mg/dL (74-106); Potassium 4.5 mmol/L (3.5-5.1); Protein, Total 6.7 g/dL (6.4-8.2); Sodium Level 140 mmol/L (136-145)
== END | disposition home or self-care (01) ==
LOC: MTLAB 09:32
PROVIDERS: PCP Nurse Practitioner Primary Care; Referring Provider Internal Medicine Rheumatology; Visit Provider Internal Medicine Rheumatology
DX: M06.4 Inflammatory polyarthropathy (principal); M48.061 Spinal stenosis, lumbar region without neurogenic claudication; M19.071 Primary osteoarthritis, right ankle and foot; E78.5 Hyperlipidemia, unspecified; E89.0 Postprocedural hypothyroidism; I10 Essential (primary) hypertension; Z79.899 Other long term (current) drug therapy
CPT/HCPCS: 36415; 80053; 85025

== ENCOUNTER → 2023-02-05 | Outpatient (CLI) | payer BC, SELFPAY ==
[2023-02-05 18:10] LABS: Absolute Lymphocyte Count 2.43 X10^3/uL (0.83-4.51); Absolute Neutrophil Count 4.2 X10^3/uL (2.0-7.7); Basophil# 0.06 X10^3/uL; Basophil% 0.8 % (0-1); Eosinophil# 0.03 X10^3/uL; Eosinophils% 0.4 % (0-5); Hematocrit 40.8 % (37-47); Hemoglobin 13.4 g/dL (12.0-15.0); Lymphocyte # 2.43 X10^3/ul (0.83-4.51); Lymphocyte % 32.6 % (19-41); Mean Corp Hgb Conc 32.8 g/dL (32-36); Mean Corpuscular Hgb 32.8 pg (27.0-32.0); Mean Platelet Vol. 10.4 fl (6.2-12.0); Monocyte# 0.72 X10^3/uL; Monocyte% 9.7 % (0-10); NRBC Flagged by Analyzer 0 % (0-5); Neutrophil # 4.19 X10^3/uL (2.7-7.7); Neutrophil % 56.2 % (47-70); Platelet Count 259 K/mm3 (150-450); RBC Distribution Width SD 40.2 fl (35.1-43.9); Red Blood Count 4.08 M/mm3 (4.2-5.4); White Blood Count 7.5 K/mm3 (4.4-11.0)
[2023-02-05 18:36] LABS: AST(SGOT) 41 U/L (15-37); Alanine Aminotransfer ALT/SGPT 47 U/L (13-56); Albumin, Serum 3.9 g/dL (3.2-5.0); Alkaline Phosphatase 81 U/L (45-117); Anion Gap 6 (5-15); BUN 16 mg/dL (7-18); Calcium,Total 9.6 mg/dL (8.5-10.1); Chloride 102 mmol/L (98-107); Creatinine, Serum 0.94 mg/dL (0.55-1.02); EST Glomerular Filtration Rate 64 mL/min (>60); Est Glom Filt Rate - Afr Amer 77 mL/min (>60); Globulin 3.9 g/dL (2.2-4.2); Glucose 93 mg/dL (74-106); Potassium 4.7 mmol/L (3.5-5.1); Protein, Total 7.8 g/dL (6.4-8.2); Sodium Level 134 mmol/L (136-145)
== END | disposition home or self-care (01) ==
LOC: MTLAB 15:29
PROVIDERS: PCP Nurse Practitioner Primary Care; Referring Provider Internal Medicine Rheumatology; Visit Provider Internal Medicine Rheumatology
DX: M06.4 Inflammatory polyarthropathy (principal); Z79.899 Other long term (current) drug therapy; M48.061 Spinal stenosis, lumbar region without neurogenic claudication; M19.071 Primary osteoarthritis, right ankle and foot; E78.5 Hyperlipidemia, unspecified; E89.0 Postprocedural hypothyroidism; I10 Essential (primary) hypertension
CPT/HCPCS: 36415; 80053; 85025

== ENCOUNTER → 2023-03-01 | Outpatient (CLI) | payer BC, SELFPAY ==
[2023-03-01 10:19] LABS: Absolute Lymphocyte Count 2.23 X10^3/uL (0.83-4.51); Absolute Neutrophil Count 3.1 X10^3/uL (2.0-7.7); Basophil# 0.04 X10^3/uL; Basophil% 0.7 % (0-1); Eosinophil# 0.06 X10^3/uL; Hemoglobin 11.7 g/dL (12.0-15.0); Lymphocyte # 2.23 X10^3/ul (0.83-4.51); Lymphocyte % 36.7 % (19-41); Mean Corp Hgb Conc 33.4 g/dL (32-36); Mean Corpuscular Hgb 33.9 pg (27.0-32.0); Mean Corpuscular Volume 101.4 fL (81-99); Mean Platelet Vol. 9.2 fl (6.2-12.0); Monocyte# 0.66 X10^3/uL; Monocyte% 10.9 % (0-10); NRBC Flagged by Analyzer 0 % (0-5); Neutrophil # 3.08 X10^3/uL (2.7-7.7); Neutrophil % 50.5 % (47-70); Platelet Count 301 K/mm3 (150-450); RBC Distribution Width CV 12.7 % (11.6-14.6); RBC Distribution Width SD 46.1 fl (35.1-43.9); Red Blood Count 3.45 M/mm3 (4.2-5.4); White Blood Count 6.1 K/mm3 (4.4-11.0)
[2023-03-01 10:49] LABS: ALB/GLOB Ratio 1.2 RATIO (0.9-2.4); AST(SGOT) 39 U/L (15-37); Alanine Aminotransfer ALT/SGPT 40 U/L (13-56); Albumin, Serum 3.8 g/dL (3.2-5.0); Alkaline Phosphatase 73 U/L (45-117); Anion Gap 4 (5-15); BUN 17 mg/dL (7-18); BUN/Creat Ratio 21.9 RATIO (10-20); Calcium,Total 9.5 mg/dL (8.5-10.1); Chloride 105 mmol/L (98-107); Creatinine, Serum 0.78 mg/dL (0.55-1.02); EST Glomerular Filtration Rate 79 mL/min (>60); Est Glom Filt Rate - Afr Amer 96 mL/min (>60); Globulin 3.3 g/dL (2.2-4.2); Glucose 105 mg/dL (74-106); Potassium 4.2 mmol/L (3.5-5.1); Protein, Total 7.1 g/dL (6.4-8.2); Sodium Level 137 mmol/L (136-145)
== END | disposition home or self-care (01) ==
LOC: MTLAB 09:33
PROVIDERS: PCP Nurse Practitioner Primary Care; Referring Provider Internal Medicine Rheumatology; Visit Provider Internal Medicine Rheumatology
DX: M06.4 Inflammatory polyarthropathy (principal); Z79.899 Other long term (current) drug therapy
CPT/HCPCS: 36415; 80053; 85025

== ENCOUNTER 2023-03-13 16:32 | Emergency (ER) | payer BC, SELFPAY ==
[2023-03-13 16:32] VITALS: BP 103/67; PULSE 96; RESP 16; TEMP 36.6; O2SAT 100
[2023-03-13] MEDS: Ketorolac 15 MG/ML Vial IV (17:08)
[2023-03-13] MEDS: 0.9% Normal Saline 1,000 ML 1000 ML IV (17:08)
--- NOTE | 2023-03-13 17:10 | RAD_ITS ---
STUDY: X-RAY CHEST REASON FOR EXAM: Female, 62 years old. STARTED WITH NAUSEA, FATIGUE, LOSS OF APPETITE AND WEAKNESS 3 WEEKS AGO, PST SEVERAL DAYS TECHNIQUE: Single AP portable view of the chest. COMPARISON: None. FINDINGS: The lungs are clear and expanded. There is no demonstrated pleural abnormality. Normal size heart. Normal mediastinum and drew. Normal visualized pulmonary arteries. Normal visualized aortic arch and descending thoracic aorta. Normal visualized thoracic spine. Normal visualized ribs, clavicles, and shoulders. There is no demonstrated abnormality of the visualized soft tissue structures of the upper abdomen. RAD/Chest 1 View (Portable) IMPRESSION: Normal x-ray examination of the chest. Electronically Signed: Erasto Joseph MD at 17:30 EDT ,
[2023-03-13 17:13] LABS: Absolute Lymphocyte Count 1.76 X10^3/uL (0.83-4.51); Absolute Neutrophil Count 5.1 X10^3/uL (2.0-7.7); Basophil# 0.05 X10^3/uL; Basophil% 0.6 % (0-1); Eosinophil# 0.03 X10^3/uL; Eosinophils% 0.4 % (0-5); Hematocrit 33.9 % (37-47); Hemoglobin 11.4 g/dL (12.0-15.0); Lymphocyte # 1.76 X10^3/ul (0.83-4.51); Lymphocyte % 22.5 % (19-41); Mean Corp Hgb Conc 33.6 g/dL (32-36); Mean Corpuscular Hgb 33.1 pg (27.0-32.0); Mean Corpuscular Volume 98.5 fL (81-99); Mean Platelet Vol. 8.8 fl (6.2-12.0); Monocyte# 0.85 X10^3/uL; Monocyte% 10.9 % (0-10); NRBC Flagged by Analyzer 0 % (0-5); Neutrophil % 65.2 % (47-70); Platelet Count 350 K/mm3 (150-450); RBC Distribution Width CV 12.7 % (11.6-14.6); RBC Distribution Width SD 45.9 fl (35.1-43.9); Red Blood Count 3.44 M/mm3 (4.2-5.4); White Blood Count 7.8 K/mm3 (4.4-11.0)
[2023-03-13 17:26] LABS: ALB/GLOB Ratio 0.9 RATIO (0.9-2.4); AST(SGOT) 21 U/L (15-37); Alanine Aminotransfer ALT/SGPT 29 U/L (13-56); Albumin, Serum 3.3 g/dL (3.2-5.0); Alkaline Phosphatase 64 U/L (45-117); Anion Gap 8 (5-15); BUN 25 mg/dL (7-18); BUN/Creat Ratio 13.9 RATIO (10-20); Calcium,Total 9.3 mg/dL (8.5-10.1); Chloride 104 mmol/L (98-107); EST Glomerular Filtration Rate 30 mL/min (>60); Est Glom Filt Rate - Afr Amer 37 mL/min (>60); Globulin 3.5 g/dL (2.2-4.2); Glucose 108 mg/dL (74-106); Potassium 3.9 mmol/L (3.5-5.1); Protein, Total 6.8 g/dL (6.4-8.2); Sodium Level 136 mmol/L (136-145); Troponin-I HS 4 pg/mL (3.0-54.0)
--- NOTE | 2023-03-13 17:46 | EDS_ITS ---
HPI History of Present Illness Chief Complaint: General Illness Narrative Narrative: Presents with weakness and lightheadedness. This has been ongoing for the past few days she has been outside working quite a bit recently. She has not had any fevers or chills. No occulta breathing. She had pain in her left breast possibly from yardwork. No leg pain or calf pain or lower extremity edema. [facility] Medical History Asthma Hyperlipidemia Hypertension Migraines Home Medications biotin 2,500 mcg capsule 5,000 mcg PO BID 05/06/18 [History Last Taken Unknown] calcium carbonate 600 mg calcium (1,500 mg) tablet (Calcium) 600 mg PO BID 05/06/18 [History Last Taken Unknown] cholecalciferol (vitamin D3) 1,250 mcg (50,000 unit) capsule 50,000 unit PO QWEEK 05/06/18 [History Last Taken 08/09/18] conj estrogen-medroxyprogesterone 0.625 mg-2.5 mg tablet (Prempro) 1 tab PO DAILY 05/06/18 [History Last Taken Unknown] levothyroxine 150 mcg tablet (Synthroid) 175 mcg PO QDAY 05/06/18 [History Last Taken 08/13/18 08:00] montelukast 10 mg tablet (Singulair) 10 mg PO PRN PRN Allergies 05/06/18 [History Last Taken Unknown] omega 3-pjm-lyw-fish oil 1,000 mg (120 mg-180 mg) capsule (Fish Oil) 1 cap PO BID 05/06/18 [History Last Taken Unknown] triamcinolone acetonide 55 mcg nasal spray aerosol (Nasacort) 1 spray intranasal QDAY 05/06/18 [History Last Taken Unknown] albuterol sulfate 90 mcg/actuation aerosol inhaler (ProAir HFA) 2 puff inhalation Q6H PRN PRN Asthma 08/06/18 [History Last Taken 08/12/18 22:00] fexofenadine 180 mg tablet (Mickie Allergy) 180 mg PO DAILY 08/06/18 [History Last Taken Unknown] lisinopril 20 mg tablet 20 mg PO DAILY 08/06/18 [History Last Taken 08/13/18 08:00] pseudoephedrine HCl 120 mg tablet,extended release (Sudafed 12 Hour) 120 mg PO DAILY 08/06/18 [History Last Taken Unknown] acetaminophen 500 mg tablet 1,000 mg PO Q8H PRN PRN Mild pain or fever (>99.6F) 08/14/18 [Rx Last Taken Unknown] albuterol sulfate 2.5 mg/3 mL (0.083 %) solution for nebulization 2.5 mg (3 mL) inhalation Q6H PRN PRN ASTHMA SYMPTOMS 08/14/18 [Rx Last Taken Unknown] docusate sodium 100 mg capsule (DOK) 100 mg PO BID PRN Constipation ##30 08/14/18 [Rx Last Taken Unknown] ibuprofen 600 mg tablet 600 mg PO Q8H PRN PRN Mild-Mod Pain (1-510) #30 tabs 08/14/18 [Rx Last Taken Unknown] polyethylene glycol 3350 17 gram oral powder packet 17 g PO DAILY PRN Constipation ##1 08/14/18 [Rx Last Taken Unknown] Allergy/AdvReac Type Severity Reaction Status Date / Time barley Allergy Other Verified 03/13/23 16:39 coconut Allergy PT UNSURE Verified 03/13/23 16:39 OF REACTION corn Allergy Other Verified 03/13/23 16:39 egg Allergy Other Verified 03/13/23 16:39 eggplant Allergy NEEDS Verified 03/13/23 16:39 FOLLOW-UP gluten Allergy unknown Verified 03/13/23 16:39 Milk Containing Products Allergy NEEDS Verified 03/13/23 16:39 (Dairy) FOLLOW-UP [Milk Containing Products] mold Allergy PT UNSURE Verified 03/13/23 16:39 OF REACTION mushroom [mushrooms] Allergy PT UNSURE Verified 03/13/23 16:39 OF REACTION nut - unspecified Allergy unknown Verified 03/13/23 16:39 palm oil Allergy PT UNSURE Verified 03/13/23 16:39 OF REACTION shellfish derived Allergy Other Verified 03/13/23 16:39 turkey Allergy Other Verified 03/13/23 16:39 wheat Allergy Other Verified 03/13/23 16:39 Yeast Allergy Other Verified 03/13/23 16:39 MALT Allergy Other Uncoded 03/13/23 16:39 Surgical History h/o left thyroidectomy h/o lumbar fusion h/o right carpal tunnel H/O: isthmusectomy Social History Smoking Status: Never smoker ROS ROS ED ROS Narrative Past medical history: Reviewed Medications: Reviewed Social history: Noncontributory Review of systems: All systems negative except as indicated General: No fever. Generalized weakness as in HPI Eyes: No visual changes ENT: No upper airway congestion, normal voice Neck: No neck pain Cardiovascular: No chest pain some lightheadedness but no syncope Respiratory: No shortness of breath or cough Gastrointestinal: No abdominal pain, nausea vomiting or diarrhea Genitourinary: No dysuria Musculoskeletal: Denies myalgias no difficulty with ambulation Skin: No rash Neurological: No memory loss, confusion or any focal weakness EXAM Physical Exam Narrative Exam Narrative: Physical exam General: Well nourished, Well developed, No Acute Distress Head: Normocephalic, Atraumatic Eyes: Conjunctiva not pale ENT: Dry mucous membranes Neck: Supple, Nontender, No lymphadenopathy Cardiovascular: Regular rate, Regular rhythm Chest wall: I can reproduce her chest wall pain. Respiratory: No distress, CTA bilaterally Abdomen: Soft, Nontender, Nondistended Back: Nontender, Normal Inspection. Negative for: CVA tenderness Extremities: Nontender, No edema Skin: Normal color, No rash Neurological: Alert, Normal Strength, Normal Sensation Psychological: Normal affect Const Vital Signs: 03/13/23 16:32 Temperature 98 F Temperature Source Temporal Pulse Rate 96 Respiratory Rate 16 Blood Pressure 103/67 Blood Pressure Mean 79 Pulse Ox 100 Oxygen Delivery Method Room Air MDM MDM MDM Narrative Medical decision making narrative: Patient had weakness and lightheadedness. I successfully ruled out any kind of NV based on EKG and troponin. She also has chest wall pain that is reproducible. She has no evidence of PE or DVT. She appears quite dehydrated clinically and she is uremic with a creatinine that is 1.8. This is likely all secondary to dehydration which makes sense based on clinical presentation as well as history of doing quite a bit of work outside recently in high heat. She is given IV fluids and she significantly improved on reevaluation. I talked to both and daughter who also gave me history. They are okay with discharge. She will stay hydrated for the next few days and stay in a cool house. Otherwise patient be discharged in stable condition. I considered admission for the AMBROCIO however I believe with IV fluids and modifications of her activities she would likely improve on her own. EKG interpretation. Sinus rhythm with a rate of 90. Normal IN and QTc intervals. No acute ischemic changes. Interpreted by emergency doctor Lab Data Labs: Laboratory Results - last 24 hr 03/13/23 03/13/23 17:00 17:00 WBC 7.8 RBC 3.44 L Hgb 11.4 L Hct 33.9 L MCV 98.5 MCH 33.1 H MCHC 33.6 RDW Std Deviation 45.9 H RDW Coeff of Zulma 12.7 Plt Count 350 MPV 8.8 Immature Gran % (Auto) 0.400 Neut % (Auto) 65.2 Lymph % (Auto) 22.5 [place] % (Auto) 10.9 H Eos % (Auto) 0.4 Baso % (Auto) 0.6 Absolute Neuts (auto) 5.1 Absolute Lymphs (auto) 1.76 Nucleated RBC % 0 Sodium 136 Potassium 3.9 Chloride 104 Carbon Dioxide 24.0 Anion Gap 8 BUN 25 H Creatinine 1.80 H Est GFR (MDRD) Af Amer 37 L Est GFR (MDRD) Non-Af 30 L BUN/Creatinine Ratio 13.9 Glucose 108 H Calcium 9.3 Total Bilirubin 0.50 AST 21 ALT 29 Alkaline Phosphatase 64 Troponin I High Sens 4 Total Protein 6.8 Albumin 3.3 Globulin 3.5 Albumin/Globulin Ratio 0.9 Radiography Diagnostic Testing: Chest x-ray read by me as normal Discharge Plan Triage Chief Complaint: General Illness ED Provider: Efrain Cash Dx/Rx/DC Orders Clinical Impression: AMBROCIO (acute kidney injury), Acute dehydration, Chest wall pain, Weakness Instructions: ED Dehydration (Adult) Prescriptions: No Action cholecalciferol (vitamin D3) 50,000 unit capsule 50,000 unit PO QWEEK Rx Instructions: takes on Saturday biotin 2,500 mcg capsule 5,000 mcg PO BID levothyroxine [Synthroid] 150 mcg tablet 175 mcg PO QDAY conj estrog-medroxyprogest chris [Prempro] 0.625-2.5 mg tablet 1 tab PO DAILY triamcinolone acetonide [Nasacort] 55 mcg aerosol,spray 1 spray INTRANASAL QDAY montelukast [Singulair] 10 mg tablet 10 mg PO PRN PRN (Reason: Allergies) calcium carbonate [Calcium 600] 600 mg calcium (1,500 mg) tablet 600 mg PO BID omega 7-yht-mla-fish oil [Fish Oil] 1,000 mg (120 mg-180 mg) capsule 1 cap PO BID pseudoephedrine HCl [Sudafed 12 Hour] 120 MG tablet extended release 120 mg PO DAILY fexofenadine [Mickie Allergy] 180 MG tablet 180 mg PO DAILY lisinopril 20 MG tablet 20 mg PO DAILY albuterol sulfate [ProAir HFA] 1 PUFF inhaler 2 puff inhalation Q6H PRN PRN (Reason: Asthma) albuterol sulfate 2.5 MG/3 ML solution for nebulization 2.5 mg inhalation Q6H PRN PRN (Reason: ASTHMA SYMPTOMS) 0RF polyethylene glycol 3350 17 GM powder in packet 17 g PO DAILY PRN (Reason: Constipation) Qty: 1 0RF acetaminophen 500 MG tablet 1,000 mg PO Q8H PRN PRN (Reason: Mild pain or fever (>99.6F)) 0RF docusate sodium [DOK] 100 MG capsule 100 mg PO BID PRN (Reason: Constipation) Qty: 30 0RF ibuprofen 600 MG tablet 600 mg PO Q8H PRN PRN (Reason: Mild-Mod Pain (1-510)) Qty: 30 0RF Primary Care Provider: Ely Moya NP Referrals: Ely Moya NP, [employer] [Primary Care Provider] - 3-5 Days Disposition Disposition: Home, Self Care
[2023-03-13] MEDS: 0.9% Normal Saline 1,000 ML 999 ML IV (18:05)
[2023-03-13 18:32] VITALS: BP 105/79; PULSE 76; RESP 16; O2SAT 99
[2023-03-13 19:10] VITALS: BP 112/78; PULSE 80; RESP 16; TEMP 36.8; O2SAT 99
== END 2023-03-13 19:13 | disposition home or self-care (01) ==
PROVIDERS: Emergency Provider Emergency Medicine; PCP Nurse Practitioner Primary Care; Visit Provider Emergency Medicine
DX: N17.9 Acute kidney failure, unspecified (principal); N64.4 Mastodynia; I10 Essential (primary) hypertension; E78.5 Hyperlipidemia, unspecified; E86.0 Dehydration; R07.89 Other chest pain; J45.909 Unspecified asthma, uncomplicated; Z79.890 Hormone replacement therapy; Z79.899 Other long term (current) drug therapy
CPT/HCPCS: 71045; 80053; 84484; 85025; 93005; 96361; 96374; 99283; J7030

== ENCOUNTER → 2023-06-05 | Outpatient (CLI) | payer BC, SELFPAY ==
[2023-06-05 12:16] LABS: Absolute Lymphocyte Count 1.77 X10^3/uL (0.83-4.51); Absolute Neutrophil Count 4.3 X10^3/uL (2.0-7.7); Basophil# 0.06 X10^3/uL; Basophil% 0.9 % (0-1); Eosinophil# 0.11 X10^3/uL; Eosinophils% 1.6 % (0-5); Hemoglobin 10.5 g/dL (12.0-15.0); Lymphocyte # 1.77 X10^3/ul (0.83-4.51); Lymphocyte % 26.2 % (19-41); Mean Corp Hgb Conc 31.8 g/dL (32-36); Mean Corpuscular Volume 106.8 fL (81-99); Mean Platelet Vol. 9.3 fl (6.2-12.0); Monocyte# 0.48 X10^3/uL; Monocyte% 7.1 % (0-10); NRBC Flagged by Analyzer 0 % (0-5); Neutrophil # 4.32 X10^3/uL (2.7-7.7); Neutrophil % 63.9 % (47-70); Platelet Count 270 K/mm3 (150-450); RBC Distribution Width CV 12.4 % (11.6-14.6); RBC Distribution Width SD 48.8 fl (35.1-43.9); Red Blood Count 3.09 M/mm3 (4.2-5.4); White Blood Count 6.8 K/mm3 (4.4-11.0)
[2023-06-05 13:36] LABS: ALB/GLOB Ratio 1.3 RATIO (0.9-2.4); AST(SGOT) 26 U/L (15-37); Alanine Aminotransfer ALT/SGPT 70 U/L (13-56); Albumin, Serum 3.5 g/dL (3.2-5.0); Alkaline Phosphatase 49 U/L (45-117); Anion Gap 5 (5-15); BUN 17 mg/dL (7-18); BUN/Creat Ratio 23.4 RATIO (10-20); Calcium,Total 8.7 mg/dL (8.5-10.1); Chloride 106 mmol/L (98-107); Creatinine, Serum 0.73 mg/dL (0.55-1.02); EST Glomerular Filtration Rate 86 mL/min (>60); Est Glom Filt Rate - Afr Amer 104 mL/min (>60); Globulin 2.7 g/dL (2.2-4.2); Glucose 98 mg/dL (74-106); Protein, Total 6.2 g/dL (6.4-8.2); Sodium Level 138 mmol/L (136-145)
== END | disposition home or self-care (01) ==
LOC: MTLAB 09:43
PROVIDERS: PCP Nurse Practitioner Primary Care; Referring Provider Internal Medicine Rheumatology; Visit Provider Internal Medicine Rheumatology
DX: M06.4 Inflammatory polyarthropathy (principal); Z79.899 Other long term (current) drug therapy
CPT/HCPCS: 36415; 80053; 85025

== ENCOUNTER → 2023-09-04 | Outpatient (CLI) | payer BC, SELFPAY ==
[2023-09-04 10:49] LABS: Absolute Lymphocyte Count 2.07 X10^3/uL (0.83-4.51); Absolute Neutrophil Count 5.5 X10^3/uL (2.0-7.7); Basophil# 0.07 X10^3/uL; Basophil% 0.8 % (0-1); Eosinophil# 0.05 X10^3/uL; Eosinophils% 0.6 % (0-5); Hematocrit 35.4 % (37-47); Hemoglobin 10.9 g/dL (12.0-15.0); Lymphocyte # 2.07 X10^3/ul (0.83-4.51); Lymphocyte % 24.8 % (19-41); Mean Corp Hgb Conc 30.8 g/dL (32-36); Mean Corpuscular Volume 103.8 fL (81-99); Mean Platelet Vol. 9.6 fl (6.2-12.0); Monocyte# 0.67 X10^3/uL; NRBC Flagged by Analyzer 0 % (0-5); Neutrophil # 5.45 X10^3/uL (2.7-7.7); Neutrophil % 65.6 % (47-70); Platelet Count 293 K/mm3 (150-450); RBC Distribution Width CV 12.6 % (11.6-14.6); RBC Distribution Width SD 47.4 fl (35.1-43.9); Red Blood Count 3.41 M/mm3 (4.2-5.4); White Blood Count 8.3 K/mm3 (4.4-11.0)
[2023-09-04 11:27] LABS: AST(SGOT) 25 U/L (15-37); Alanine Aminotransfer ALT/SGPT 40 U/L (13-56); Albumin, Serum 3.4 g/dL (3.2-5.0); Alkaline Phosphatase 57 U/L (45-117); Anion Gap 4 (5-15); BUN 22 mg/dL (7-18); BUN/Creat Ratio 28.6 RATIO (10-20); Calcium,Total 8.8 mg/dL (8.5-10.1); Chloride 106 mmol/L (98-107); Creatinine, Serum 0.77 mg/dL (0.55-1.02); EST Glomerular Filtration Rate 80 mL/min (>60); Est Glom Filt Rate - Afr Amer 97 mL/min (>60); Globulin 3.3 g/dL (2.2-4.2); Glucose 93 mg/dL (74-106); Potassium 4.9 mmol/L (3.5-5.1); Protein, Total 6.7 g/dL (6.4-8.2); Sodium Level 137 mmol/L (136-145)
== END | disposition home or self-care (01) ==
LOC: MTLAB 09:34
PROVIDERS: PCP Nurse Practitioner Primary Care; Referring Provider Internal Medicine Rheumatology; Visit Provider Internal Medicine Rheumatology
DX: M06.4 Inflammatory polyarthropathy (principal); Z79.899 Other long term (current) drug therapy; M48.061 Spinal stenosis, lumbar region without neurogenic claudication; M19.071 Primary osteoarthritis, right ankle and foot
CPT/HCPCS: 36415; 80053; 85025

== ENCOUNTER → 2023-10-30 | Outpatient (CLI) | payer BC, SELFPAY ==
--- OUTSIDE RECORDS SUMMARY | 2023-10-30 12:48 | XMS RPT_ITS | CCD ---
Author Name Unknown Address [address] [place] [address] Organization [facility] Care Team Providers Care Software Quality Engineer Name Role Phone TABITHA ADULT REMEDIAL EDUCATION INSTRUCTOR-INSPECTOR [employer], OTIS S Primary Care Physicia n Monserrat Otis N Unavailable German, Otis N Unavailable Kathie Martinez Unavailable German, Otis N Unavailable German, Otis N Unavailable German, Otis N Unavailable German, Otis N Unavailable TABITHA ADULT REMEDIAL EDUCATION INSTRUCTOR-INSPECTOR [employer], OTIS S Primary Care Unava ilable TABITHA ADULT REMEDIAL EDUCATION INSTRUCTOR-INSPECTOR [employer], OTIS S Attending Unava shemar OLIVEIRA MD, DR HERNANDEZ Attending Unavailabl e TABITHA ADULT REMEDIAL EDUCATION INSTRUCTOR-INSPECTOR [employer], OTIS S Primary Care Unava ilable TABITHA ADULT REMEDIAL EDUCATION INSTRUCTOR-INSPECTOR [employer], OTIS S Primary Care Unava iljurgen GOMEZ MD, VERENICE Wood Attending Unavailable TABITHA ADULT REMEDIAL EDUCATION INSTRUCTOR-INSPECTOR [employer], OTIS S Primary Care Unava iljurgen GOMEZ MD, VERENICE Wood Attending Unavailable TEE MARR, DR HERNANDEZ Attending Unavailabl e TABITHA ADULT REMEDIAL EDUCATION INSTRUCTOR-INSPECTOR [employer], OTIS S Primary Care Unava ilable TABITHA ADULT REMEDIAL EDUCATION INSTRUCTOR-INSPECTOR [employer], OTIS S Attending Unava ilable TABITHA ADULT REMEDIAL EDUCATION INSTRUCTOR-INSPECTOR [employer], OTIS S Primary Care Unava ilable TABITHA ADULT REMEDIAL EDUCATION INSTRUCTOR-INSPECTOR [employer], OTIS S Primary Care Unava ilable TABITHA ADULT REMEDIAL EDUCATION INSTRUCTOR-INSPECTOR [employer], OTIS S Attending Unava ilable Allergies Allergy Classification Reported Allergen(s) Allergy Type Date of Onset Reaction(s) Facility (9 sources) Kathryn albicans allergenic extract Drug Allergy Unknown (qualifier value) [facility] Work Phone: (9 sources) corn extract Drug Allergy Unknown (qualifier value) [facility] Work Phone: Medications Current Medications Medication Drug Class(es) Dates Sig (Normalized) Sig (Original) 0.5 ML tirzepatide 5 MG/ML Auto-Injector [Mounjaro] (4 sources) Start: 07-03-2023 inject 1 dose by subcutaneous injection every other week Mounjaro 2.5 mg/0.5 mL subcutaneous solution Dose : 2.5 mg =, Subcutaneous, q2wk, rotate injection sites, # 4 EA, 0 Refill(s) Start Date: 07/03/23 Status: Ordered 8 hr acetaminophen 650 mg extended release oral tablet (9 sources) Start: 04-11-2020 Tylenol 8 Hour 650 mg oral tablet, extended release Dose : 1,300 mg = 2 tab(s), Oral, q6h, 0 Refill(s) Start Date: 04/11/20 Status: Ordered Completed/Discontinued Medications Medication Drug Class(es) Dates Sig (Normalized) Sig (Original) acetaminophen 500 mg / diphenhydrAMINE hydrochloride 25 mg oral tablet (8 sources) Histamine-1 Receptor Antagonist TYLENOL PM EXTRA STRENGTH 500-25 MG TABS two tabs every night DIPHENHYDRAMINE-APA P (SLEEP) [id number] Chelo OBANDO [id number] 200 actuat albuterol 0.09 mg/actuat metered dose inhaler (16 sources) beta2-Adrenergic Agonist End: 06-14-2016 PROVENTIL HFA AERS as needed ALBUTEROL SULFATE AERS [id number] Chelo OBANDO azelastine hydrochloride 0.137 mg/actuat metered dose nasal spray (16 sources) Histamine-1 Receptor Antagonist End: 06-14-2016 ASTELIN 137 MCG/SPRAY SOLN 2 sprays twice daily as needed AZELASTINE HCL [id number] Chelo OBANDO calcium carbonate 1500 mg oral tablet (8 sources) take 1 tablet by mouth twice daily CALCIUM TABS 600 mg One tablet by mouth twice daily CALCIUM TABS [id number] Chelo OBANDO cholecalciferol 1.25 mg oral capsule (8 sources) Vitamin D Start: 06-14-2016 VITAMIN D3 13545 UNIT CAPS CHOLECALCIFEROL [id number] Kylah Galeano estrogens, conjugated (long term) 0.625 mg / medroxyPROGESTERone acetate 2.5 mg oral tablet (8 sources) Progestin, Estrogen take 1 tablet by mouth once daily PREMPRO 0.625-2.5 MG TABS One tablet by mouth daily CONJ ESTROG-MEDROXYPROGE ST CORI [id number] Chelo OBANDO ezetimibe 10 mg oral tablet (16 sources) Dietary Cholesterol Absorption Inhibitor End: 06-14-2016 take 1 tablet by mouth once daily ZETIA 10 MG TABS One tablet by mouth daily EZETIMIBE [id number] Chelo OBANDO fexofenadine / Pseudoephedrine (8 sources) alpha-Adrenergic Agonist, Histamine-1 Receptor Antagonist take 180-240 mg by mouth once daily TODD-D 24 HOUR 180-240 MG [id number] One tablet by mouth daily FEXOFENADINE-PSEUDO EPHEDRINE [id number] Chelo OBANDO Flaxseed extract (16 sources) Non-Standardized Food Allergenic Extract, Non-Standardized Plant Allergenic Extract FLAX SEED OIL CAPS one tab every night FLAXSEED (LINSEED) CAPS [id number] Chelo OBANDO Problems Active Problems Problem Classification Problem Date Documented Date Episodic/Chronic Anxiety disorders (6 sources) Mixed anxiety and depressive disorder 05-01-2023 Chronic Complications of surgical procedures or medical care (8 sources) Postoperative hypothyroidism; Translations: [Postprocedural hypothyroidism] Onset: 08-15-2010 08-15-2010 Chronic Deficiency and other anemia (9 sources) Macrocytic anemia 05-18-2020 Episodic Deficiency and other anemia (6 sources) Anemia; Translations: [Anemia, unspecified] Onset: 08-13-2023 Episodic Disorders of lipid metabolism (10 sources) Hyperlipidemia; Translations: [Hyperlipidemia, unspecified] 04-05-2020 Chronic Essential hypertension (9 sources) Hypertensive disorder 04-05-2020 Chronic Fluid and electrolyte disorders (15 sources) Hyperkalemia; Translations: [Dehydration] 05-18-2020 Episodic Menopausal disorders (17 sources) Menopausal symptom; Translations: [Atrophic vaginitis] 05-18-2020 Chronic Nutritional deficiencies (10 sources) Vitamin D deficiency; Translations: [Vitamin D deficiency, unspecified] 04-05-2020 Chronic Other aftercare (1 source) Long-term current use of drug therapy; Translations: [Other long term care pharmacist (current) drug therapy] Episodic Other nervous system disorders (8 sources) Radial tunnel syndrome; Translations: [Lesion of radial nerve, unspecified upper limb] Onset: 06-14-2016 06-14-2016 Chronic Other nervous system disorders (8 sources) Carpal tunnel syndrome; Translations: [Carpal tunnel syndrome, right upper limb] 03-20-2012 Chronic Other nervous system disorders (6 sources) Impairment of balance 05-01-2023 Episodic Other non-traumatic joint disorders (9 sources) Joint pain 05-18-2020 Episodic Other nutritional; endocrine; and metabolic disorders (1 source) Abnormal weight loss; Translations: [Abnormal weight loss] Episodic Other nutritional; endocrine; and metabolic disorders (6 sources) Weight loss 03-14-2023 Episodic Other screening for suspected conditions (not mental disorders or infectious disease) (5 sources) Raised TSH level 05-02-2023 Episodic Other upper respiratory infections (2 sources) Acute maxillary sinusitis; Translations: [Upper respiratory infection] 05-01-2021 Episodic Residual codes; unclassified (9 sources) Immunization due 05-18-2020 Episodic Rheumatoid arthritis and related disease (1 source) Inflammatory polyarthropathy; Translations: [Inflammatory polyarthropathy] Chronic Thyroid disorders (18 sources) Hypothyroidism; Translations: [Hypothyroidism, unspecified] Onset: 12-16-2009 04-05-2020 Chronic Unclassified (20 sources) Patient encounter status 05-18-2020 Unclassified (8 sources) Cancer cervix screening status 11-30-2021 Past or Other Problems Problem Classification Problem Date Documented Da te Episodic/Chronic Other acquired deformities (8 sources) Spondylolisthesis ; Translations: [Spondylolisthesi s, multiple sites in spine] Onset: 12-17-2016 12-17-2016 Episodic Other aftercare (2 sources) Surgical follow-up; Translations: [Encounter for other specified surgical aftercare] Onset: 08-27-2017 09-01-2017 Episodic Spondylosis; intervertebral disc disorders; other back problems (16 sources) Low back pain; Translations: [Low back pain] Onset: 06-14-2016 12-17-2016 Episodic Results Test Name Value Interpretation Reference Range Facil ity Vital Signs Date Time Vital Sign Value Performing Clinician Facility 11-25-2012 14:42-0500 Body weight 80.74 kg Otis German Work Phone: [facility] Work Phone: 11-25-2012 14:42-0500 Diastolic blood pressure 76 mm[Hg] Otis German Work Phone: [facility] Work Phone: 11-25-2012 14:42-0500 Systolic blood pressure 124 mm[Hg] Otis German Work Phone: [facility] Work Phone: 08-25-2012 09:29-0500 Heart rate 88 /min Otis German Work Phone: [facility] Work Phone: 08-15-2010 08:26-0400 Respiratory rate 20 /min Otis German Work Phone: [facility] Work Phone: 12-07-2009 09:03-0500 Body height 162.56 cm Otis German Work Phone: [facility] Work Phone: 12-07-2009 09:03-0500 Body mass index (BMI) [Ratio] 34.35 kg/m2 Otis German Work Phone: [facility] Work Phone: 12-07-2009 09:03-0500 Body surface area Derived from formula 1.96 m2 Otis German Work Phone: [facility] Work Phone: 12-07-2009 09:03-0500 Body weight 90.63 kg Otis German Work Phone: [facility] Work Phone: Encounters Encounter Date Encounter Type Care Provider Facility Start: 09-18-2023 End: 09-19-2023 ambulatory OTIS LU ADULT REMEDIAL EDUCATION INSTRUCTOR-INSPECTOR [employer] Facility:A Start: 09-12-2023 End: 09-13-2023 ambulatory OTIS LU ADULT REMEDIAL EDUCATION INSTRUCTOR-INSPECTOR [employer] Facility:B Start: 09-12-2023 End: 09-12-2023 Patient encounter procedure OTIS LU ADULT REMEDIAL EDUCATION INSTRUCTOR-INSPECTOR [employer] [facility] Start: 08-13-2023 End: 08-14-2023 ambulatory OTIS LU ADULT REMEDIAL EDUCATION INSTRUCTOR-INSPECTOR [employer] Facility:A Start: 08-13-2023 End: 08-13-2023 Patient encounter procedure VERENICE GOMEZ MD [facility] Start: 07-10-2023 End: 07-11-[address] DAVID OLIVEIRA MD Facility:B Start: 07-10-2023 End: 07-10-[address] DAVID OLIVEIRA MD [facility] Start: 07-05-2023 End: 07-06-[address] DAVID OLIVEIRA MD Facility:B Start: 07-05-2023 End: 07-05-[address] DAVID OLIVEIRA MD [facility] Start: 06-04-2023 End: 06-05-2023 ambulatory OTIS Wood TABITHA ADULT REMEDIAL EDUCATION INSTRUCTOR-INSPECTOR [employer] Facility:B Start: 06-04-2023 End: 06-04-2023 Patient encounter procedure OTIS LU ADULT REMEDIAL EDUCATION INSTRUCTOR-INSPECTOR [employer] [facility] Start: 05-01-2023 End: 05-02-2023 ambulatory OTIS Wood TABITHA ADULT REMEDIAL EDUCATION INSTRUCTOR-INSPECTOR [employer] Facility:B Start: 05-01-2023 End: 05-01-2023 Patient encounter procedure OTIS LU ADULT REMEDIAL EDUCATION INSTRUCTOR-INSPECTOR [employer] [facility] Start: 08-09-2022 End: 08-09-2022 Patient encounter procedure OTIS LU ADULT REMEDIAL EDUCATION INSTRUCTOR-INSPECTOR [employer] [facility] Start: 02-27-2022 End: 02-27-2022 Patient encounter procedure OTIS LU ADULT REMEDIAL EDUCATION INSTRUCTOR-INSPECTOR [employer] [facility] Start: 08-10-2021 End: 08-10-2021 Patient encounter procedure OTIS LU ADULT REMEDIAL EDUCATION INSTRUCTOR-INSPECTOR [employer] [facility] Procedures Date Procedure Procedure Detail Performing Clinician Start: 08-27-2017 End: 08-27-2017 Documentation of current medications Otis German Work Phone: Start: 05-29-2017 End: 05-29-2017 Documentation of current medications Kathie Martinez Work Phone: Start: 05-01-2017 End: 05-01-2017 Documentation of current medications Kathie Martinez Work Phone: Start: 03-19-2017 End: 03-19-2017 Documentation of current medications Otis German Work Phone: Start: 12-17-2016 End: 12-17-2016 Documentation of current medications Otis German Work Phone: Plan of Treatment Date Care Activity Detail Author Start: 08-27-2017 End: 08-27-2017 Patient encounter procedure Appointment [facility] Work Phone: Start: 08-27-2017 End: 08-27-2017 Radex spine lumbosacral minimum 4 views X-Ray, Spine, Lumbosacral 4 views [facility] Work Phone: Start: 06-05-2017 End: 06-05-2017 Physical Therapy General Physical Therapy [facility], [address] [place] [address], [id number] [facility] Work Phone: Start: 05-29-2017 End: 05-29-2017 Patient encounter procedure Appointment [facility] Work Phone: Start: 05-21-2017 End: 05-21-2017 Radex spine lumbosacral minimum 4 views X-Ray, Spine, Lumbosacral 2-3 views [facility] Work Phone: Start: 05-01-2017 End: 05-01-2017 Patient encounter procedure Appointment [facility] Work Phone: Start: 04-30-2017 End: 04-30-2017 Radex spine lumbosacral minimum 4 views X-Ray, Spine, Lumbosacral 2-3 views [facility] Work Phone: Start: 03-18-2017 End: 03-18-2017 Radex spine lumbosacral minimum 4 views X-Ray, Spine, Lumbosacral 2-3 views [facility] Work Phone: Start: 12-17-2016 End: 12-17-2016 DEXA scan DEXA scan [facility] Work Phone: Start: 12-17-2016 End: 12-17-2016 Radex spine lumbscrl compl w/bending views min 6 X-Ray, Spine, Lumbar, complete with bending views [facility] Work Phone: Start: 06-14-2016 End: 06-14-2016 Radex spine cervical 2 or 3 views X-Ray, Spine, Cervical 2-3 views [facility] Work Phone: Immunizations Immunization Date Immunization Notes Care Provider [facility] 07-28-2020 zoster vaccine recombinant OTIS LU ADULT REMEDIAL EDUCATION INSTRUCTOR-INSPECTOR [employer] [facility] 04-09-2012 hepatitis A vaccine, adult dosage OTIS LU ADULT REMEDIAL EDUCATION INSTRUCTOR-INSPECTOR [employer] [facility] 10-05-2011 hepatitis A vaccine, adult dosage OTIS LU ADULT REMEDIAL EDUCATION INSTRUCTOR-INSPECTOR [employer] [facility] 10-05-2011 measles/mumps/rubell a virus vaccine OTIS LU ADULT REMEDIAL EDUCATION INSTRUCTOR-INSPECTOR [employer] [facility] Payers Date Payer Category Payer Unknown [id number] 1960 Unknown [id number] [id number] [id number] 1960 Unknown [id number] 2.16.8 [id number] 1959 Unknown [id number] 2.16.8 [id number] 1959 Unknown [id number] 2.16.8 [id number] 1959 Unknown [id number] 2.16.8 [id number] 1959 Unknown [id number] 2.16.8 [id number] 1959 Unknown [id number] 2.16.8 [id number] Social History Date Type Detail Facility Start: 04-11-2020 Never smoked t obacco (finding) [facility] Sex Assigned At Female [facility] Clinical Note 07-05-2023 Note Date & Type Note Facility 07-05-2023 Note ORIGINAL EXAMINATION: LIMITED ABDOMINAL ULTRASOUND07/05/2023 8:56 am ABDOMEN LIMITED ULTRASOUND ABDOMEN LIMITED COMPARISON: None HISTORY: ORDERING SYSTEM PROVIDED HISTORY: Reason for Exam: ELEVATED LIVER ENZYMES FINDINGS: The liver is normal in contour and echotexture. The liver is normal in size. No hepatic mass or biliary ductal dilatation is identified. The patient is status post cholecystectomy. The common duct measures 6.2 mm, which is normal. The visualized portions of the pancreas are normal. No abdominal ascites. Survey image of the right kidney is normal without pelvocaliectasis. IMPRESSION: Unremarkable study. Interpreted by: James Keith MD Preliminary Report By: James Keith MD Electronically signed By James Kieth MD Dictated Date: 07/05/2023 11:57:28 AM Prelim Date: 07/05/2023 12:01:03 PM Sign Date: 07/05/2023 12:01:03 PM Ordering Provider: [facility] Evaluation + Plan note 03-14-2023 Laboratory Note Date & Type Note Facility 03-14-2023 Evaluation + Plan note Future Appointments Future Scheduled TestsBasic Metabolic Panel 03/14/23Thyroid Stimulating Hormone 03/14/23Free T4 03/14/23Complete Blood Count 03/14/23 [facility] Evaluation + Plan note 11-30-2021 Laboratory Note Date & Type Note Facility 11-30-2021 Evaluation + Plan note Future Scheduled TestsPathology Casino Surveillance Officer Request 11/30/21 [facility] Evaluation + Plan note Note Date & Type Note Facility Evaluation + Plan note Future Appointments Appointment Date:11/23/2021 09:00:00 AM Scheduled Provider:OTIS LU Location:[facility] Appointment Type:PC Wellness Annual [facility] Evaluation + Plan note Laboratory Note Date & Type Note Facility Evaluation + Plan note Future Appointments Appointment Date:07/03/2023 09:00:00 AM Scheduled Provider:OTIS LU APRN-INSPECTOR [employer] Location:[facility] Appointment Type:PC OV Future Scheduled TestsBasic Metabolic Panel 03/14/23Thyroid Stimulating Hormone 03/14/23Free T4 03/14/23Complete Blood Count 03/14/23 [facility] Evaluation + Plan note Laboratory Note Date & Type Note Facility Evaluation + Plan note Future Appointments Appointment Date:09/18/2023 11:00:00 AM Scheduled Provider: Location:[facility] Appointment Type:[facility] OV Follow Up Diagnostic Tests PendingErythropoietin Level 08/13/23Copper Level 08/13/23Kappa/Lambda, Free, Serum 08/13/23IFE (serum) 08/13/23Protein Electrophoresis Urine 08/13/23IFE (urine) 08/13/23 Future Scheduled TestsBasic Metabolic Panel 03/14/23Thyroid Stimulating Hormone 03/14/23Free T4 03/14/23Complete Blood Count 03/14/23 [facility] Evaluation + Plan note Laboratory Note Date & Type Note Facility Evaluation + Plan note Future Appointments Appointment Date:09/18/2023 11:00:00 AM Scheduled Provider: Location:[facility] Appointment Type:[facility] OV Follow Up Future Scheduled TestsBasic Metabolic Panel 03/14/23Thyroid Stimulating Hormone 03/14/23Free T4 03/14/23Complete Blood Count 03/14/23 [facility] Hospital course Narrative Note Date & Type Note Facility Hospital course Narrative No data available for this section [facility] Hospital Discharge instructions Note Date & Type Note Facility Hospital Discharge instructions No data available for this section [facility] Progress note Note Date & Type Note Facility Progress note No data available for this section [facility] Summary Purpose Family History No Family History Records Found Advance Directives No Advanced Directives Records Found Additional Source Comments Care Team (unrecognized sect ion and content) Personnel Name: OTIS LU APRN-INSPECTOR [employer] Address: [address] Care Team Personnel Name: TABITHA, OTIS S ADULT REMEDIAL EDUCATION INSTRUCTOR-INSPECTOR [employer] Position: P4 Advanced Ornamental Metal Worker Apprentice Member Role: Primary Care Physician Address: Address: [address] [place] [address]- [place] Care Team Related Persons Name: GUIDO ALEJANDRO Address: [address] [place], [place] [id number] [place] Care Team Personnel Name: OTIS LU ADULT REMEDIAL EDUCATION INSTRUCTOR-INSPECTOR [employer] Position: P4 Advanced Ornamental Metal Worker Apprentice Member Role: Primary Care Physician Address: Address: [address] [place] [address]- [place] Care Team Related Persons Name: GUIDO ALEJANDRO Address: Home [address] [place], [place] [id number] [place] Care Team Personnel Name: OTIS LU ADULT REMEDIAL EDUCATION INSTRUCTOR-INSPECTOR [employer] Position: P4 Advanced Ornamental Metal Worker Apprentice Member Role: Primary Care Physician Address: Address: [address] [place] [address]- [place] Care Team Related Persons Name: GUIDO ALEJANDRO Address: Home [address] [place], [place] [id number] [place] Care Team Personnel Name: OTIS LU ADULT REMEDIAL EDUCATION INSTRUCTOR-INSPECTOR [employer] Position: P4 Advanced Ornamental Metal Worker Apprentice Member Role: Primary Care Physician Address: Address: [address] [place] [address]- [place] Care Team Related Persons Name: GUIDO ALEJANDRO Address: Home [address] [place], [place] [id number] [place] Care Team Personnel Name: OTIS LU ADULT REMEDIAL EDUCATION INSTRUCTOR-INSPECTOR [employer] Position: P4 Advanced Ornamental Metal Worker Apprentice Member Role: Primary Care Physician Address: Address: [address] [place] [address]- [place] Care Team Related Persons Name: GUIDO ALEJANDRO Address: Home [address] [place], [place] [phone] [place] Care Team Personnel Name: OTIS LU ADULT REMEDIAL EDUCATION INSTRUCTOR-INSPECTOR [employer] Position: P4 Advanced Ornamental Metal Worker Apprentice Member Role: Primary Care Physician Address: Address: [address] [place] [address]- [place] Care Team Related Persons Name: GUIDO ALEJANDRO Address: Home [address] [place], [place] [id number] [place] Care Team (unrecognized sect ion and content) Care Team Personnel Name: OTIS LU ADULT REMEDIAL EDUCATION INSTRUCTOR-INSPECTOR [employer] Position: P4 Advanced Practice Nurse Member Role: Primary Care Physician Address: Address: [address] [facility] [place] [address]- Care Team Related Persons Name: GUIDO ALEJANDRO Address: Home [address] [place], [place] [id number] INFORMATION SOURCE (unrecogn ized section and content) FOR RECORDS PERTAINING TO PATIENTS WHO ARE OR HAVE BEEN ENROLLED IN A CHEMICAL DEPENDENCY/SUBSTANCEABUSE PROGRAM, SOME INFORMATION MAY BE OMITTED. This clinical summary was aggregated from multiple sources. Caution should be exercised in using it in the provision of clinical care. This summary normalizes information from multiple sources, and as a consequence, information in this document may materially change the coding, format and clinical context of patient data. In addition, data may be omitted in some cases. CLINICAL DECISIONS SHOULD BE BASED ON THE PRIMARY CLINICAL RECORDS. [email or web address] [email or web address]. provides no warranty or guarantee of the accuracy or completeness of information in this document.
[2023-10-30 15:19] LABS: Absolute Neutrophil Count 6.5 X10^3/uL (2.0-7.7); Basophil# 0.06 X10^3/uL; Basophil% 0.7 % (0-1); Eosinophil# 0.05 X10^3/uL; Eosinophils% 0.6 % (0-5); Hematocrit 35.2 % (37-47); Hemoglobin 11.3 g/dL (12.0-15.0); Lymphocyte % 18.2 % (19-41); Mean Corp Hgb Conc 32.1 g/dL (32-36); Mean Corpuscular Hgb 34.2 pg (27.0-32.0); Mean Corpuscular Volume 106.7 fL (81-99); Mean Platelet Vol. 9.8 fl (6.2-12.0); Monocyte% 6.8 % (0-10); NRBC Flagged by Analyzer 0 % (0-5); Neutrophil # 6.48 X10^3/uL (2.7-7.7); Neutrophil % 73.5 % (47-70); Platelet Count 293 K/mm3 (150-450); RBC Distribution Width CV 11.6 % (11.6-14.6); RBC Distribution Width SD 45.4 fl (35.1-43.9); White Blood Count 8.8 K/mm3 (4.4-11.0)
[2023-10-30 16:36] LABS: ALB/GLOB Ratio 1.2 RATIO (0.9-2.4); AST(SGOT) 34 U/L (15-37); Alanine Aminotransfer ALT/SGPT 46 U/L (13-56); Albumin, Serum 3.6 g/dL (3.2-5.0); Alkaline Phosphatase 62 U/L (45-117); Anion Gap 6 (5-15); BUN 18 mg/dL (7-18); BUN/Creat Ratio 22.5 RATIO (10-20); Calcium,Total 8.5 mg/dL (8.5-10.1); Chloride 105 mmol/L (98-107); EST Glomerular Filtration Rate 77 mL/min (>60); Est Glom Filt Rate - Afr Amer 93 mL/min (>60); Globulin 3.1 g/dL (2.2-4.2); Glucose 89 mg/dL (74-106); Potassium 4.3 mmol/L (3.5-5.1); Protein, Total 6.7 g/dL (6.4-8.2); Sodium Level 137 mmol/L (136-145)
== END | disposition home or self-care (01) ==
PROVIDERS: PCP Nurse Practitioner Primary Care; Referring Provider Internal Medicine Rheumatology; Visit Provider Internal Medicine Rheumatology
DX: M06.4 Inflammatory polyarthropathy (principal); M48.061 Spinal stenosis, lumbar region without neurogenic claudication; M19.071 Primary osteoarthritis, right ankle and foot; E78.5 Hyperlipidemia, unspecified; E89.0 Postprocedural hypothyroidism; I10 Essential (primary) hypertension; F32.A Depression, unspecified; Z79.899 Other long term (current) drug therapy
CPT/HCPCS: 36415; 80053; 85025

== ENCOUNTER → 2024-01-30 | Outpatient (CLI) | payer BC, SELFPAY ==
[2024-01-30 12:28] LABS: Absolute Lymphocyte Count 2.18 X10^3/uL (0.83-4.51); Basophil# 0.05 X10^3/uL; Basophil% 0.5 % (0-1); Eosinophil# 0.16 X10^3/uL; Eosinophils% 1.5 % (0-5); Hematocrit 34.4 % (37-47); Hemoglobin 10.7 g/dL (12.0-15.0); Lymphocyte # 2.18 X10^3/ul (0.83-4.51); Lymphocyte % 20.7 % (19-41); Mean Corp Hgb Conc 31.1 g/dL (32-36); Mean Corpuscular Hgb 31.3 pg (27.0-32.0); Mean Corpuscular Volume 100.6 fL (81-99); Mean Platelet Vol. 9.3 fl (6.2-12.0); Monocyte# 1.08 X10^3/uL; Monocyte% 10.3 % (0-10); NRBC Flagged by Analyzer 0 % (0-5); Neutrophil # 7.01 X10^3/uL (2.7-7.7); Neutrophil % 66.5 % (47-70); Platelet Count 374 K/mm3 (150-450); RBC Distribution Width CV 11.9 % (11.6-14.6); RBC Distribution Width SD 43.9 fl (35.1-43.9); Red Blood Count 3.42 M/mm3 (4.2-5.4); White Blood Count 10.5 K/mm3 (4.4-11.0)
[2024-01-30 12:49] LABS: ALB/GLOB Ratio 0.8 RATIO (0.9-2.4); AST(SGOT) 25 U/L (15-37); Alanine Aminotransfer ALT/SGPT 37 U/L (13-56); Alkaline Phosphatase 90 U/L (45-117); Anion Gap 4 (5-15); BUN 15 mg/dL (7-18); BUN/Creat Ratio 24.2 RATIO (10-20); Calcium,Total 9.3 mg/dL (8.5-10.1); Chloride 106 mmol/L (98-107); Creatinine, Serum 0.62 mg/dL (0.55-1.02); EST Glomerular Filtration Rate 103 mL/min (>60); Est Glom Filt Rate - Afr Amer 125 mL/min (>60); Globulin 3.8 g/dL (2.2-4.2); Glucose 92 mg/dL (74-106); Potassium 5.1 mmol/L (3.5-5.1); Protein, Total 6.8 g/dL (6.4-8.2); Sodium Level 137 mmol/L (136-145)
== END | disposition home or self-care (01) ==
LOC: MTLAB 10:27
PROVIDERS: PCP Nurse Practitioner Primary Care; Referring Provider Internal Medicine Rheumatology; Visit Provider Internal Medicine Rheumatology
DX: M06.4 Inflammatory polyarthropathy (principal); Z79.899 Other long term (current) drug therapy
CPT/HCPCS: 36415; 80053; 85025

== ENCOUNTER 2024-03-12 19:35 | Emergency (ER) | payer BC, SELFPAY ==
[2024-03-12 19:35] VITALS: BP 127/44; PULSE 84; RESP 16; TEMP 37; O2SAT 100; BMI 21.8
--- NOTE | 2024-03-12 19:41 | EDS_ITS ---
HPI History of Present Illness Chief Complaint: Allergic Reaction Informant: patient Onset/Context/Timing Onset: Days (4 days) Context: Gradual Onset Narrative Narrative: Patient presents secondary to concern for allergic reaction and sinus infection. She states last Saturday she went a bike ride with her granddaughters. She states that she is allergic to all trees. She was exposed to a [place] tree on that date. She states that evening she started getting a scratchy throat, congestion, mild cough. She called her rate marker the next morning and they advised her to come in on Saturday for her scheduled allergy shots. She was seen at the rate marker office yesterday and got her normal shots. She states today she feels more like she may have bronchitis or a sinus infection so she presents for evaluation. Triage note documents patient complaining of her tongue feeling fat, however patient tells me she might have some slight fullness along the left side of her tongue which she thinks is from the bite plates that she has been using. She does use Nasacort nasal spray in the morning and azelastine spray at night. [facility] Medical History Hypothyroid Pneumonia Asthma Migraines Hyperlipidemia Hypertension Home Medications ?Medication ?Instructions ?Recorded ?Last Taken ?Type biotin 2,500 mcg capsule 5,000 mcg PO BID 05/06/18 Unknown History calcium carbonate (Calcium 600) 600 mg PO TID 05/06/18 Unknown History cholecalciferol (vitamin D3) 1,250 800 mcg PO QWEEK 05/06/18 08/09/18 History mcg (50,000 unit) capsule levothyroxine 150 mcg tablet 175 mcg PO QDAY 05/06/18 03/12/24 History (Synthroid) montelukast 10 mg tablet 10 mg PO PRN PRN Allergies 05/06/18 Unknown History (Singulair) omega 9-hkh-uoy-fish oil 1,000 mg 1 cap PO DAILY 05/06/18 Unknown History (120 mg-180 mg) capsule (Fish Oil) triamcinolone acetonide 55 mcg 1 spray intranasal QDAY 05/06/18 03/12/24 History nasal spray aerosol (Nasacort) albuterol sulfate 90 mcg/actuation 2 puff inhalation Q6H PRN PRN 08/06/18 08/12/18 22:00 History aerosol inhaler (ProAir HFA) Asthma fexofenadine 180 mg tablet 180 mg PO DAILY 08/06/18 03/12/24 History (Mickie Allergy) lisinopril 20 mg tablet 20 mg PO DAILY 08/06/18 08/13/18 08:00 History pseudoephedrine HCl 120 mg 120 mg PO DAILY 08/06/18 03/12/24 History tablet,extended release (Sudafed 12 Hour) acetaminophen 500 mg tablet 1,000 mg (2 x 500 mg) PO Q8H PRN 08/14/18 Unknown Rx PRN Mild pain or fever (>99.6F) docusate sodium 100 mg capsule 100 mg PO BID PRN Constipation ##30 08/14/18 Unkn own Rx (DOK) amoxicillin 500 mg-potassium 1 tab PO BID #20 tabs 03/12/24 Unknown Rx clavulanate 125 mg tablet (Augmentin) azelastine 137 mcg (0.1 %) nasal 1 spray intranasal QHS 03/12/24 03/12/24 History spray aerosol hydroxychloroquine 200 mg tablet 200 mg PO DAILY 03/12/24 03/12/24 History methotrexate sodium 2.5 mg tablet 15 mg PO .COMPLEX 03/12/24 Unknown History pediatric [id number] 1 tab PO DAILY 03/12/24 Unknown History (Multi-Vitamins with Iron chewable tablet) prednisone 10 mg tablet 10 mg PO UD #33 tabs 03/12/24 Unknown Rx sulfasalazine 500 mg 500 mg PO BID 03/12/24 Unknown History tablet,delayed release Allergy/AdvReac Type Severity Reaction Status Date / Time barley Allergy Other Verified 03/12/24 19:36 coconut Allergy PT UNSURE Verified 03/12/24 19:36 OF REACTION corn Allergy Other Verified 03/12/24 19:36 egg Allergy Other Verified 03/12/24 19:36 eggplant Allergy NEEDS Verified 03/12/24 19:36 FOLLOW-UP Food Allergies: Uncoded Allergy NEEDS Verified 03/12/24 19:36 FOLLOW-UP gluten Allergy unknown Verified 03/12/24 19:36 Milk Containing Products Allergy NEEDS Verified 03/12/24 19:36 (Dairy) (Milk Containing FOLLOW-UP Products) mold Allergy PT UNSURE Verified 03/12/24 19:36 OF REACTION mushroom (mushrooms) Allergy PT UNSURE Verified 03/12/24 19:36 OF REACTION nut - unspecified Allergy unknown Verified 03/12/24 19:36 palm oil Allergy PT UNSURE Verified 03/12/24 19:36 OF REACTION shellfish derived Allergy Other Verified 03/12/24 19:36 turkey Allergy Other Verified 03/12/24 19:36 wheat Allergy Other Verified 03/12/24 19:36 Yeast Allergy Other Verified 03/12/24 19:36 Surgical History h/o lumbar fusion h/o right carpal tunnel H/O: isthmusectomy h/o left thyroidectomy Social History Smoking Status: Never smoker ROS ROS ED Constitutional Constitutional ED: Denies chills or fever(s) Eyes Eyes: Denies discharge from eye(s) ENT ENT ED: Reports other Details: Nasal congestion and pressure ; Denies discharge from eye(s) Cardiovascular Cardiovascular: Denies chest pain or palpitations Respiratory/Chest Respiratory/Chest: Reports cough and dyspnea Gastrointestinal Gastrointestinal: Denies abdominal pain, nausea or vomiting Musculoskeletal Musculoskeletal: Denies back pain or extremity pain Integumentary Denies Abrasions or rash Neurologic Neurologic: Denies headache(s) or weakness Psychiatric Psychiatric: Denies anxiety or depression Allergic/Immunologic Allergic/Immunologic ED: Denies lip swelling or urticaria EXAM Physical Exam Const Vital Signs: 03/12/24 19:35 Temperature 98.6 F Temperature Source Temporal Pulse Rate 84 Respiratory Rate 16 Blood Pressure 127/44 H Blood Pressure Mean 71 Pulse Ox 100 Positive well nourished and well developed General Appearance ED: well developed HEENT Reports moist mucous membranes HEENT Narrative: Mild tenderness to palpation over the bilateral maxillary sinuses. Intraoral examination reveals no acute abnormalities. No tongue edema. Patient speaks with a strong voice. Eyes EOMs intact bilaterally Chest Wall inspection of chest normal and palpation of chest normal Resp normal respiratory effort and clear to auscultation bilaterally Cardio regular rate and regular rhythm GI non-tender Palpation: soft Extremity normal to inspection Neuro no sensory deficits noted Motor Exam: strength 5/5 throughout Psych mental status grossly normal Skin no rashes or lesions noted MDM MDM MDM Narrative Medical decision making narrative: Chest x-ray obtained to evaluate for acute lung pathology, cardiac size, or mediastinal abnormality. Patient treated with Afrin spray along with Benadryl and prednisone. Radiography Diagnostic Testing: Clinical Impression(s) from Imaging Studies Chest X-Ray 03/12/24 20:45 IMPRESSION: Hazy patchy anterior left lower lung airspace disease, to include pneumonia. Recommend follow-up to resolution as neoplastic process is not excluded. Electronically Signed: Andrews Rosado MD at 21:38 EDT , Treatment and Re-Evaluation :: On repeat evaluation she is resting comfortably. She does report a burning sensation from the Afrin, but does state that her sinuses are draining. Chest x-ray per my interpretation appears to show 2 small focal areas of infiltrate in the left lung. Radiology interpretation reviewed and agrees. Test results discussed with the patient. She had a similar findings in October and improved after receiving prednisone and Augmentin. She will be given the same course here. I did recommend she follow-up for a repeat chest x-ray at the completion of her antibiotic course to ensure clearing of her lung. She voices understanding and agreement. Discharge Plan Triage Chief Complaint: Allergic Reaction ED Provider: hGada Edmonds Dx/Rx/DC Orders Clinical Impression: Pneumonia Instructions: ED Pneumonia (Adult) Prescriptions: New amoxicillin-pot clavulanate [Augmentin] 500-125 mg tablet 1 tab PO BID Qty: 20 0RF prednisone 10 mg tablet 10 mg PO UD Qty: 33 0RF Rx Instructions: Take 4 tablets daily for 3 days, then 3 tablets daily for 3 days, then 2 tablets daily for 3 days, then 1 tablet a day for 3 days then 1 tablet every other day for 3 doses. No Action cholecalciferol (vitamin D3) 50,000 unit capsule 800 mcg PO QWEEK Rx Instructions: takes on Saturday biotin 2,500 mcg capsule 5,000 mcg PO BID levothyroxine [Synthroid] 150 mcg tablet 175 mcg PO QDAY triamcinolone acetonide [Nasacort] 55 mcg aerosol,spray 1 spray INTRANASAL QDAY montelukast [Singulair] 10 mg tablet 10 mg PO PRN PRN (Reason: Allergies) calcium carbonate [Calcium 600] 600 mg calcium (1,500 mg) tablet 600 mg PO TID omega 7-pcu-oxk-fish oil [Fish Oil] 1,000 mg (120 mg-180 mg) capsule 1 cap PO DAILY pseudoephedrine HCl [Sudafed 12 Hour] 120 MG tablet extended release 120 mg PO DAILY fexofenadine [Mickie Allergy] 180 MG tablet 180 mg PO DAILY lisinopril 20 MG tablet 20 mg PO DAILY albuterol sulfate [ProAir HFA] 1 PUFF inhaler 2 puff inhalation Q6H PRN PRN (Reason: Asthma) acetaminophen 500 MG tablet 1,000 mg PO Q8H PRN PRN (Reason: Mild pain or fever (>99.6F)) 0RF docusate sodium [DOK] 100 MG capsule 100 mg PO BID PRN (Reason: Constipation) Qty: 30 0RF azelastine 137 mcg (0.1 %) aerosol,spray 1 spray INTRANASAL QHS Multi-Vitamins with Iron Tablet,Chewable 1 tab PO DAILY Rx Instructions: administer with a meal hydroxychloroquine 200 mg tablet 200 mg PO DAILY methotrexate sodium 2.5 mg tablet 15 mg PO .COMPLEX Rx Instructions: 15 mg orally Once a week on saturdays.; sulfasalazine 500 mg tablet,delayed release (DR/EC) 500 mg PO BID Primary Care Provider: Ely Moya NP Referrals: Ely Moya NP, CERTIFIED [facility] [Primary Care Provider] - 1-2 Weeks Print Language: [place] Disposition Disposition: Home, Self Care
[2024-03-12] MEDS: predniSONE 20 MG Tablet 40 MG PO (20:44)
[2024-03-12] MEDS: DiphenhydrAMINE 25 MG Capsule PO (20:44)
[2024-03-12] MEDS: Oxymetazoline 0.05% 1 SPRAY SPRAY.BTL NASAL (20:45)
--- NOTE | 2024-03-12 20:45 | RAD_ITS ---
INDICATION: cough EXAMINATION/TECHNIQUE: X-RAY - XR Chest 2 Views COMPARISON: 03/13/2023 chest radiograph. Findings: Single frontal view of the chest. LUNG PARENCHYMA: Hazy patchy anterior left lower lung airspace disease. PLEURA: No pleural effusion. No pneumothorax. HEART/GREAT VESSELS: Cardiomediastinal silhouette is unremarkable. BONES: Lower lumbar orthopedic hardware, only partially imaged, although no obvious hardware complication. RAD/Chest PA and Lateral IMPRESSION: Hazy patchy anterior left lower lung airspace disease, to include pneumonia. Recommend follow-up to resolution as neoplastic process is not excluded. Electronically Signed: Andrews Rosado MD at 21:38 EDT ,
[2024-03-12 21:47] VITALS: BP 98/75; PULSE 77; RESP 14
[2024-03-12] MEDS: Amox/Clavulanate 875 MG Tablet PO (21:50)
[2024-03-12 21:55] VITALS: BP 98/75; PULSE 77; RESP 14; TEMP 37; O2SAT 100
== END 2024-03-12 21:56 | disposition home or self-care (01) ==
PROVIDERS: Emergency Provider Emergency Medicine; PCP Nurse Practitioner Primary Care; Visit Provider Emergency Medicine
DX: J18.9 Pneumonia, unspecified organism (principal); E03.9 Hypothyroidism, unspecified; E78.5 Hyperlipidemia, unspecified; I10 Essential (primary) hypertension; J45.909 Unspecified asthma, uncomplicated; Z79.890 Hormone replacement therapy; Z79.899 Other long term (current) drug therapy
CPT/HCPCS: 71046; 99283

== ENCOUNTER → 2024-04-20 | Outpatient (CLI) | payer BC, SELFPAY ==
[2024-04-20 17:52] LABS: Absolute Lymphocyte Count 2.22 X10^3/uL (0.83-4.51); Absolute Neutrophil Count 12.6 X10^3/uL (2.0-7.7); Basophil# 0.06 X10^3/uL; Basophil% 0.4 % (0-1); Eosinophil# 0.04 X10^3/uL; Eosinophils% 0.2 % (0-5); Lymphocyte # 2.22 X10^3/ul (0.83-4.51); Lymphocyte % 13.8 % (19-41); Mean Corp Hgb Conc 31.4 g/dL (32-36); Mean Corpuscular Hgb 31.3 pg (27.0-32.0); Mean Corpuscular Volume 99.7 fL (81-99); Monocyte# 1.14 X10^3/uL; Monocyte% 7.1 % (0-10); NRBC Flagged by Analyzer 0 % (0-5); Neutrophil % 78.1 % (47-70); Platelet Count 411 K/mm3 (150-450); RBC Distribution Width CV 11.6 % (11.6-14.6); Red Blood Count 3.51 M/mm3 (4.2-5.4); White Blood Count 16.1 K/mm3 (4.4-11.0)
[2024-04-20 18:19] LABS: ALB/GLOB Ratio 0.6 RATIO (0.9-2.4); AST(SGOT) 22 U/L (15-37); Alanine Aminotransfer ALT/SGPT 33 U/L (13-56); Albumin, Serum 2.9 g/dL (3.2-5.0); Alkaline Phosphatase 73 U/L (45-117); Anion Gap 5 (5-15); BUN 18 mg/dL (7-18); BUN/Creat Ratio 23.8 RATIO (10-20); Calcium,Total 9.4 mg/dL (8.5-10.1); Chloride 104 mmol/L (98-107); Creatinine, Serum 0.76 mg/dL (0.55-1.02); EST Glomerular Filtration Rate 82 mL/min (>60); Est Glom Filt Rate - Afr Amer 99 mL/min (>60); Globulin 4.5 g/dL (2.2-4.2); Glucose 123 mg/dL (74-106); Potassium 4.9 mmol/L (3.5-5.1); Protein, Total 7.4 g/dL (6.4-8.2); Sodium Level 135 mmol/L (136-145)
== END | disposition home or self-care (01) ==
LOC: MTLAB 15:26
PROVIDERS: PCP Nurse Practitioner Primary Care; Referring Provider Internal Medicine Rheumatology; Visit Provider Internal Medicine Rheumatology
DX: M06.4 Inflammatory polyarthropathy (principal); M48.061 Spinal stenosis, lumbar region without neurogenic claudication; M19.071 Primary osteoarthritis, right ankle and foot; E78.5 Hyperlipidemia, unspecified; E89.0 Postprocedural hypothyroidism; I10 Essential (primary) hypertension; F32.A Depression, unspecified; Z79.899 Other long term (current) drug therapy
CPT/HCPCS: 36415; 80053; 85025

== ENCOUNTER → 2024-05-19 | Outpatient (CLI) | payer BC, SELFPAY ==
[2024-05-19 17:56] LABS: Erythrocyte Sedimentation Rate 22 mm/hr (0-30)
[2024-05-21 05:07] LABS: CRP, High Sensitivity 0.28 mg/L (0.00-3.00)
[2024-05-26 11:59] LABS: Immunoglobulin A 377 mg/dL (87-352); Immunoglobulin E 16 IU/mL (6-495); Immunoglobulin G 908 mg/dL (586-1602)
== END | disposition home or self-care (01) ==
LOC: MTLAB 15:25
PROVIDERS: PCP Nurse Practitioner Primary Care; Referring Provider Internal Medicine Pulmonary Disease; Visit Provider Internal Medicine Pulmonary Disease
DX: R06.00 Dyspnea, unspecified (principal)
CPT/HCPCS: 36415; 82784; 82785; 85652; 86141

== ENCOUNTER → 2024-07-14 | Outpatient (CLI) | payer BC, SELFPAY | END | disposition home or self-care (01) | LOC: MTLAB 11:51 | PROVIDERS: PCP Nurse Practitioner Primary Care; Referring Provider Internal Medicine Pulmonary Disease; Visit Provider Internal Medicine Pulmonary Disease | DX: J47.9 Bronchiectasis, uncomplicated (principal); J45.30 Mild persistent asthma, uncomplicated; R06.00 Dyspnea, unspecified | CPT/HCPCS: 87449 ==

== ENCOUNTER → 2024-07-28 | Outpatient (CLI) | payer BC, SELFPAY ==
[2024-07-28 12:51] LABS: Absolute Lymphocyte Count 2.73 X10^3/uL (0.83-4.51); Absolute Neutrophil Count 2.9 X10^3/uL (2.0-7.7); Basophil# 0.09 X10^3/uL; Basophil% 1.3 % (0-1); Eosinophil# 0.49 X10^3/uL; Hematocrit 36.9 % (37-47); Hemoglobin 11.4 g/dL (12.0-15.0); Lymphocyte # 2.73 X10^3/ul (0.83-4.51); Lymphocyte % 39.2 % (19-41); Mean Corp Hgb Conc 30.9 g/dL (32-36); Mean Corpuscular Hgb 30.4 pg (27.0-32.0); Mean Corpuscular Volume 98.4 fL (81-99); Mean Platelet Vol. 10.1 fl (6.2-12.0); Monocyte# 0.73 X10^3/uL; Monocyte% 10.5 % (0-10); NRBC Flagged by Analyzer 0 % (0-5); Neutrophil # 2.92 X10^3/uL (2.7-7.7); Neutrophil % 41.9 % (47-70); Platelet Count 269 K/mm3 (150-450); RBC Distribution Width CV 12.5 % (11.6-14.6); RBC Distribution Width SD 45.2 fl (35.1-43.9); Red Blood Count 3.75 M/mm3 (4.2-5.4)
[2024-07-28 13:36] LABS: AST(SGOT) 22 U/L (15-37); Alanine Aminotransfer ALT/SGPT 27 U/L (13-56); Albumin, Serum 3.3 g/dL (3.2-5.0); Alkaline Phosphatase 80 U/L (45-117); Anion Gap 3 (5-15); BUN 17 mg/dL (7-18); BUN/Creat Ratio 26.4 RATIO (10-20); Calcium,Total 9.1 mg/dL (8.5-10.1); Chloride 106 mmol/L (98-107); Creatinine, Serum 0.64 mg/dL (0.55-1.02); EST Glomerular Filtration Rate 98 mL/min (>60); Est Glom Filt Rate - Afr Amer 119 mL/min (>60); Globulin 3.4 g/dL (2.2-4.2); Glucose 87 mg/dL (74-106); Potassium 5.2 mmol/L (3.5-5.1); Protein, Total 6.7 g/dL (6.4-8.2); Sodium Level 138 mmol/L (136-145)
== END | disposition home or self-care (01) ==
LOC: MTLAB 09:38
PROVIDERS: PCP Nurse Practitioner Primary Care; Referring Provider Internal Medicine Rheumatology; Visit Provider Internal Medicine Rheumatology
DX: M06.4 Inflammatory polyarthropathy (principal); M19.071 Primary osteoarthritis, right ankle and foot; Z79.899 Other long term (current) drug therapy
CPT/HCPCS: 36415; 80053; 85025

== ENCOUNTER → 2024-10-22 | Outpatient (CLI) | payer MEDICARE, SELFPAY ==
[2024-10-22 12:16] LABS: Absolute Lymphocyte Count 1.13 X10^3/uL (0.83-4.51); Absolute Neutrophil Count 8.3 X10^3/uL (2.0-7.7); Basophil# 0.05 X10^3/uL; Basophil% 0.5 % (0-1); Eosinophil# 0.12 X10^3/uL; Eosinophils% 1.2 % (0-5); Hemoglobin 12.7 g/dL (12.0-15.0); Lymphocyte # 1.13 X10^3/ul (0.83-4.51); Lymphocyte % 11.2 % (19-41); Mean Corp Hgb Conc 31.8 g/dL (32-36); Mean Corpuscular Hgb 30.6 pg (27.0-32.0); Mean Corpuscular Volume 96.4 fL (81-99); Monocyte# 0.47 X10^3/uL; Monocyte% 4.7 % (0-10); NRBC Flagged by Analyzer 0 % (0-5); Neutrophil # 8.27 X10^3/uL (2.7-7.7); Neutrophil % 81.9 % (47-70); Platelet Count 295 K/mm3 (150-450); RBC Distribution Width CV 12.1 % (11.6-14.6); RBC Distribution Width SD 43.3 fl (35.1-43.9); Red Blood Count 4.15 M/mm3 (4.2-5.4); White Blood Count 10.1 K/mm3 (4.4-11.0)
[2024-10-22 12:50] LABS: AST(SGOT) 20 U/L (15-37); Alanine Aminotransfer ALT/SGPT 30 U/L (13-56); Albumin, Serum 3.6 g/dL (3.2-5.0); Alkaline Phosphatase 87 U/L (45-117); Anion Gap 5 (5-15); BUN 14 mg/dL (7-18); BUN/Creat Ratio 20.9 RATIO (10-20); Calcium,Total 9.5 mg/dL (8.5-10.1); Chloride 105 mmol/L (98-107); Creatinine, Serum 0.67 mg/dL (0.55-1.02); EST Glomerular Filtration Rate 94 mL/min (>60); Est Glom Filt Rate - Afr Amer 114 mL/min (>60); Globulin 3.6 g/dL (2.2-4.2); Glucose 100 mg/dL (74-106); Potassium 4.9 mmol/L (3.5-5.1); Protein, Total 7.2 g/dL (6.4-8.2); Sodium Level 138 mmol/L (136-145)
== END | disposition home or self-care (01) ==
LOC: MTLAB 09:57
PROVIDERS: PCP Nurse Practitioner Primary Care; Referring Provider Internal Medicine Rheumatology; Visit Provider Internal Medicine Rheumatology
DX: M06.4 Inflammatory polyarthropathy (principal); Z79.899 Other long term (current) drug therapy
CPT/HCPCS: 36415; 80053; 85025

== ENCOUNTER → 2024-11-12 | Outpatient (CLI) | payer MEDICARE, SELFPAY ==
[2024-11-12 10:32] LABS: Absolute Lymphocyte Count 3.79 X10^3/uL (0.83-4.51); Absolute Neutrophil Count 4.4 X10^3/uL (2.0-7.7); Basophil# 0.08 X10^3/uL; Basophil% 0.8 % (0-1); Eosinophil# 0.23 X10^3/uL; Eosinophils% 2.4 % (0-5); Hematocrit 39.2 % (37-47); Hemoglobin 12.6 g/dL (12.0-15.0); Lymphocyte # 3.79 X10^3/ul (0.83-4.51); Lymphocyte % 40.1 % (19-41); Mean Corp Hgb Conc 32.1 g/dL (32-36); Mean Corpuscular Hgb 30.1 pg (27.0-32.0); Mean Corpuscular Volume 93.8 fL (81-99); Mean Platelet Vol. 8.9 fl (6.2-12.0); Monocyte% 9.5 % (0-10); NRBC Flagged by Analyzer 0 % (0-5); Neutrophil # 4.38 X10^3/uL (2.7-7.7); Neutrophil % 46.4 % (47-70); Platelet Count 408 K/mm3 (150-450); RBC Distribution Width CV 11.8 % (11.6-14.6); RBC Distribution Width SD 40.4 fl (35.1-43.9); Red Blood Count 4.18 M/mm3 (4.2-5.4); White Blood Count 9.5 K/mm3 (4.4-11.0)
== END | disposition home or self-care (01) ==
LOC: MTLAB 09:15
PROVIDERS: PCP Nurse Practitioner Primary Care; Referring Provider Internal Medicine Pulmonary Disease; Visit Provider Internal Medicine Pulmonary Disease
DX: J45.30 Mild persistent asthma, uncomplicated (principal); R06.00 Dyspnea, unspecified
CPT/HCPCS: 36415; 85025

== ENCOUNTER → 2025-01-20 | Outpatient (CLI) | payer MEDICARE, SELFPAY ==
[2025-01-20 17:55] LABS: Absolute Lymphocyte Count 2.24 X10^3/uL (0.83-4.51); Absolute Neutrophil Count 8.1 X10^3/uL (2.0-7.7); Basophil# 0.07 X10^3/uL; Basophil% 0.6 % (0-1); Eosinophil# 0.16 X10^3/uL; Eosinophils% 1.4 % (0-5); Hematocrit 36.1 % (37-47); Hemoglobin 11.5 g/dL (12.0-15.0); Lymphocyte # 2.24 X10^3/ul (0.83-4.51); Lymphocyte % 19.4 % (19-41); Mean Corp Hgb Conc 31.9 g/dL (32-36); Mean Corpuscular Volume 94.3 fL (81-99); Mean Platelet Vol. 10.6 fl (6.2-12.0); Monocyte# 0.94 X10^3/uL; Monocyte% 8.1 % (0-10); NRBC Flagged by Analyzer 0 % (0-5); Platelet Count 291 K/mm3 (150-450); RBC Distribution Width CV 13.1 % (11.6-14.6); Red Blood Count 3.83 M/mm3 (4.2-5.4); White Blood Count 11.6 K/mm3 (4.4-11.0)
[2025-01-20 18:16] LABS: ALB/GLOB Ratio 1.1 RATIO (0.9-2.4); AST(SGOT) 24 U/L (<=31); Alanine Aminotransfer ALT/SGPT 21 U/L (<=34); Albumin, Serum 3.6 g/dL (3.4-4.8); Alkaline Phosphatase 91 U/L (35-104); Anion Gap 12 (5-15); BUN 12 mg/dL (4-19); BUN/Creat Ratio 17.4 RATIO (10-20); Calcium,Total 9.5 mg/dL (7.6-11.0); Carbon Dioxide 24.4 mmol/L (21.0-32.0); Chloride 103 mmol/L (98-108); Creatinine, Serum 0.68 mg/dL (0.70-1.20); EST Glomerular Filtration Rate 96 (>60); Globulin 3.3 g/dL (2.2-4.2); Glucose 84 mg/dL (70-99); Potassium 4.6 mmol/L (3.3-5.1); Protein, Total 6.9 g/dL (5.9-8.4); Sodium Level 138 mmol/L (133-145); Total Bilirubin 0.21 mg/dL (0.00-1.30)
== END | disposition home or self-care (01) ==
LOC: MTLAB 14:44
PROVIDERS: PCP Nurse Practitioner Primary Care; Referring Provider Internal Medicine Rheumatology; Visit Provider Internal Medicine Rheumatology
DX: M06.4 Inflammatory polyarthropathy (principal); Z79.899 Other long term (current) drug therapy
CPT/HCPCS: 36415; 80053; 85025

== ENCOUNTER → 2025-03-29 | Outpatient (CLI) | payer MEDICARE, SELFPAY ==
[2025-03-29 10:48] LABS: Absolute Lymphocyte Count 2.65 X10^3/uL (0.83-4.51); Absolute Neutrophil Count 7.2 X10^3/uL (2.0-7.7); Basophil# 0.05 X10^3/uL; Basophil% 0.4 % (0-1); Eosinophil# 0.25 X10^3/uL; Eosinophils% 2.1 % (0-5); Hematocrit 33.3 % (37-47); Hemoglobin 10.5 g/dL (12.0-15.0); Lymphocyte # 2.65 X10^3/ul (0.83-4.51); Lymphocyte % 22.7 % (19-41); Mean Corp Hgb Conc 31.5 g/dL (32-36); Mean Corpuscular Hgb 30.8 pg (27.0-32.0); Mean Corpuscular Volume 97.7 fL (81-99); Mean Platelet Vol. 9.3 fl (6.2-12.0); Monocyte# 1.42 X10^3/uL; Monocyte% 12.2 % (0-10); NRBC Flagged by Analyzer 0 % (0-5); Neutrophil # 7.23 X10^3/uL (2.7-7.7); Neutrophil % 62.1 % (47-70); Platelet Count 308 K/mm3 (150-450); RBC Distribution Width CV 13.3 % (11.6-14.6); RBC Distribution Width SD 47.8 fl (35.1-43.9); Red Blood Count 3.41 M/mm3 (4.2-5.4); White Blood Count 11.7 K/mm3 (4.4-11.0)
[2025-03-30 15:57] LABS: ALB/GLOB Ratio 1.2 RATIO (0.9-2.4); AST(SGOT) 26 U/L (<=31); Alanine Aminotransfer ALT/SGPT 24 U/L (<=34); Albumin, Serum 3.6 g/dL (3.4-4.8); Alkaline Phosphatase 85 U/L (35-104); Anion Gap 9 (5-15); BUN 15 mg/dL (4-19); BUN/Creat Ratio 23.1 RATIO (10-20); Calcium,Total 9.3 mg/dL (7.6-11.0); Carbon Dioxide 25.4 mmol/L (21.0-32.0); Chloride 103 mmol/L (98-108); Creatinine, Serum 0.64 mg/dL (0.70-1.20); EST Glomerular Filtration Rate 98 (>60); Glucose 91 mg/dL (70-99); Potassium 4.7 mmol/L (3.3-5.1); Protein, Total 6.6 g/dL (5.9-8.4); Sodium Level 137 mmol/L (133-145); Total Bilirubin 0.31 mg/dL (0.00-1.30)
== END | disposition home or self-care (01) ==
LOC: MTLAB 08:35
PROVIDERS: PCP Nurse Practitioner Primary Care; Referring Provider Internal Medicine Rheumatology; Visit Provider Internal Medicine Rheumatology
DX: M06.4 Inflammatory polyarthropathy (principal); Z79.899 Other long term (current) drug therapy
CPT/HCPCS: 36415; 80053; 85025

== ENCOUNTER → 2025-05-18 | Outpatient (CLI) | payer MEDICARE, SELFPAY ==
[2025-05-18 12:36] LABS: Hematocrit 33.2 % (37-47); Hemoglobin 10.5 g/dL (12.0-15.0); Immature Granulocytes Count 0.030 X10^3/uL (0.0-0.0); Mean Corp Hgb Conc 31.6 g/dL (32-36); Mean Corpuscular Volume 101.5 fL (81-99); Mean Platelet Vol. 9.5 fl (6.2-12.0); NRBC Flagged by Analyzer 0 % (0-5); Platelet Count 298 K/mm3 (150-450); RBC Distribution Width CV 12.3 % (11.6-14.6); RBC Distribution Width SD 45.9 fl (35.1-43.9); Red Blood Count 3.27 M/mm3 (4.2-5.4); White Blood Count 8.8 K/mm3 (4.4-11.0)
[2025-05-18 12:54] LABS: AST(SGOT) 28 U/L (<=31); Alanine Aminotransfer ALT/SGPT 30 U/L (<=34); Albumin, Serum 3.6 g/dL (3.4-4.8); Alkaline Phosphatase 102 U/L (35-104); Anion Gap 10 (5-15); BUN 19 mg/dL (4-19); BUN/Creat Ratio 27.5 RATIO (10-20); Calcium,Total 9.3 mg/dL (7.6-11.0); Carbon Dioxide 24.9 mmol/L (21.0-32.0); Chloride 103 mmol/L (98-108); Globulin 3.0 g/dL (2.2-4.2); Glucose 101 mg/dL (70-99); Potassium 5.0 mmol/L (3.3-5.1)
== END | disposition home or self-care (01) ==
LOC: MTLAB 09:57
PROVIDERS: PCP Nurse Practitioner Primary Care; Referring Provider Internal Medicine Rheumatology; Visit Provider Internal Medicine Rheumatology
DX: M06.4 Inflammatory polyarthropathy (principal); Z79.899 Other long term (current) drug therapy
CPT/HCPCS: 36415; 80053; 85025

== ENCOUNTER → 2025-08-24 | Outpatient (CLI) | payer MEDICARE, SELFPAY ==
[2025-08-24 15:07] LABS: Hematocrit 34.9 % (37-47); Hemoglobin 11.0 g/dL (12.0-15.0); Immature Granulocytes Count 0.030 X10^3/uL (0.0-0.0); Mean Corp Hgb Conc 31.5 g/dL (32-36); Mean Corpuscular Volume 102.0 fL (81-99); Mean Platelet Vol. 9.5 fl (6.2-12.0); NRBC Flagged by Analyzer 0 % (0-5); Platelet Count 289 K/mm3 (150-450); RBC Distribution Width CV 12.5 % (11.6-14.6); RBC Distribution Width SD 47.1 fl (35.1-43.9); Red Blood Count 3.42 M/mm3 (4.2-5.4); White Blood Count 9.3 K/mm3 (4.4-11.0)
[2025-08-24 15:38] LABS: AST(SGOT) 27 U/L (<=31); Alanine Aminotransfer ALT/SGPT 24 U/L (<=34); Albumin, Serum 4.0 g/dL (3.4-4.8); Alkaline Phosphatase 92 U/L (35-104); Anion Gap 9 (5-15); BUN 20 mg/dL (4-19); BUN/Creat Ratio 31.0 RATIO (10-20); Calcium,Total 9.4 mg/dL (7.6-11.0); Carbon Dioxide 26.3 mmol/L (21.0-32.0); Chloride 104 mmol/L (98-108); Globulin 3.0 g/dL (2.2-4.2); Glucose 97 mg/dL (70-99); Potassium 4.9 mmol/L (3.3-5.1)
== END | disposition home or self-care (01) ==
LOC: MTLAB 12:38
PROVIDERS: PCP Nurse Practitioner Primary Care; Referring Provider Internal Medicine Rheumatology; Visit Provider Internal Medicine Rheumatology
DX: M06.4 Inflammatory polyarthropathy (principal); Z79.899 Other long term (current) drug therapy
CPT/HCPCS: 36415; 80053; 85025